=== PATIENT | male | born 1960 | race Caucasian/White ===

== ENCOUNTER 2018-04-16 08:15 | Day surgery (SDC) | payer OTHER, MEDICAID ==
[~2018-04-16] VITALS: Ht 193 cm; Wt 132.7 kg
[2018-04-16 08:38] LABS: HEMATOCRIT 38.6 % (42.0-54.0); HEMOGLOBIN 12.9 g/dL (13.5-17.5); MCH 29.3 pg (26.0-34.0); MCHC 33.4 g/dL (31.0-37.0); MCV 87.5 fL (80.0-100.0); MEAN PLATELET VOLUME 8.8 fL (7.4-10.4); RBC 4.41 10x6/uL (4.20-6.10); RDW 15.8 % (11.5-14.5); WBC 7.7 10x3/uL (4.8-10.8)
[2018-04-16 08:47] LABS: CALC OSMOLALITY 267 mosm/kg (275-300); CALCIUM 8.1 mg/dL (8.5-10.1); CARBON DIOXIDE 31.4 mmol/L (21.0-32.0); CHLORIDE - SERUM 97 mmol/L (98-107); CREATININE - SERUM 0.8 mg/dL (0.6-1.3); GLUCOSE 128 mg/dL (74-106); POTASSIUM - SERUM 4.1 mmol/L (3.5-5.1); SODIUM 134 mmol/L (136-145); UREA NITROGEN 7 mg/dL (7-18); eGFR NON AFRICAN AMERICAN > 90 mL/min (90-120)
[2018-04-16] MEDS ORDERED: NORCO 7.5/325 T1 TA1 PO (09:43)
[2018-04-16] MEDS ORDERED: NEURONTIN800 MG PO (09:45)
[2018-04-16] MEDS ORDERED: BUTALB-ACETAMIN-CAFF ×2 (09:45→09:46)
[2018-04-16] MEDS ORDERED: MOBIC7.5 MG PO (09:47)
[2018-04-16] MEDS ORDERED: NORVASC10 MG (09:47)
[2018-04-16] MEDS ORDERED: CYCLOBENZAPRINE10 MG PO (09:48)
[2018-04-16] MEDS ORDERED: PRINZIDE 20/12.1 TA1 PO (09:49)
[2018-04-16 10:04] VITALS: BP 103/63; Ht 193 cm; Wt 132.7 kg
[2018-04-16] MEDS ORDERED: OXYCODONE HCL5 M1 PO (13:05)
== END 2018-04-16 16:25 | disposition home or self-care (01) ==
LOC: D.OPS 08:15 → D.PAN 10:50 → D.OPS 12:30
PROVIDERS: Anesthesiology
DX: K43.9 Ventral hernia without obstruction or gangrene (principal); J44.9 Chronic obstructive pulmonary disease, unspecified; I73.9 Peripheral vascular disease, unspecified; E11.9 Type 2 diabetes mellitus without complications; F17.200 Nicotine dependence, unspecified, uncomplicated; Z01.812 Encounter for preprocedural laboratory examination

== ENCOUNTER → 2018-10-02 08:22 | Outpatient (CLI) | payer OTHER, MEDICAID ==
[2018-04-16 10:04] VITALS: BMI 35.6
[~2018-10-02 08:22] MED LIST: BUTALB-ACETAMIN-CAFF; CYCLOBENZAPRINE10 MG PO; MOBIC7.5 MG PO; NEURONTIN800 MG PO; NORCO 7.5/325 T1 TA1 PO; NORVASC10 MG; OXYCODONE HCL5 M1 PO; PRINZIDE 20/12.1 TA1 PO
== END | disposition home or self-care (01) ==
LOC: D.CT 08:22
PROVIDERS: ATTEND Surgery
DX: K43.9 Ventral hernia without obstruction or gangrene (principal)

== ENCOUNTER 2018-10-23 08:00 | Outpatient (CLI) | payer OTHER, MEDICAID ==
[~2018-10-23] VITALS: Ht 193 cm; Wt 131.1 kg
[~2018-10-23 08:00] MED LIST changes: -NORVASC10 MG; +NORVASC10 MG PO
[2018-10-23] MEDS ORDERED: VITAMIN B-1100 M1 PO (09:02)
[2018-10-23] MEDS ORDERED: FOLATE0.4 MG PO (09:02)
[2018-10-23 09:51] LABS: HEMATOCRIT 38.3 % (42.0-54.0); HEMOGLOBIN 12.9 g/dL (13.5-17.5); MCH 28.5 pg (26.0-34.0); MCHC 33.7 g/dL (31.0-37.0); MCV 84.5 fL (80.0-100.0); MEAN PLATELET VOLUME 9.3 fL (7.4-10.4); RBC 4.53 10x6/uL (4.20-6.10); WBC 12.1 10x3/uL (4.8-10.8)
[2018-10-23 10:14] LABS: CALC OSMOLALITY 257 mosm/kg (275-300); CALCIUM 8.8 mg/dL (8.5-10.1); CARBON DIOXIDE 29.7 mmol/L (21.0-32.0); CHLORIDE - SERUM 92 mmol/L (98-107); CREATININE - SERUM 0.8 mg/dL (0.6-1.3); GLUCOSE 120 mg/dL (74-106); POTASSIUM - SERUM 3.5 mmol/L (3.5-5.1); SODIUM 129 mmol/L (136-145); UREA NITROGEN 7 mg/dL (7-18); eGFR NON AFRICAN AMERICAN > 90 mL/min (90-120)
[2018-11-03 11:03] VITALS: Ht 193 cm; Wt 131.1 kg
== END 2018-10-23 08:01 | disposition home or self-care (01) ==
LOC: D.OPS 08:00 → D.PAN 10-24 09:30 → EDSTATUS 10-24 09:30
PROVIDERS: Anesthesiology; ATTEND Surgery
DX: Z53.9 Procedure and treatment not carried out, unspecified reason (principal)

== ENCOUNTER 2018-10-23 16:36 | Inpatient (IN) | payer OTHER, MEDICAID ==
[~2018-10-23] VITALS: Ht 193 cm; Wt 127.0 kg
--- NOTE | ~2018-10-23 | EC ---
PATIENT:KEILY REINA DATE OF SERVICE: 10/23/18 SEX: M MEDICAL RECORD: [id number] DATE OF : 62 LOCATION:D.MS [address] AGE OF PATIENT: 58 ADMISSION DATE: 10/23/18 REFERRING PHYSICIAN: INTERPRETING PHYSICIAN: BRISEIDA ASH MD ECHOCARDIOGRAM REPORT ECHO CHARGES 4 ECHO COMPLETE Date: 11/02/18 CLINICAL DIAGNOSIS: INCREASED O2 CONSUMPTION, SOB ECHOCARDIOGRAPHIC MEASUREMENTS (adult normal given) AC root (d.<3.7cm) 3.9 cm LV Septum d (<1.2 cm> 1.7 cm Valve Excursion 2.2 cm LV Septum (systole) 1.9 cm Left Atria (s.<4.0cm> 3.8 cm LVPW d(<1.2cm) 1.6 cm RV (d.<2.3cm) 3.5 cm LVPW (sytole) 1.9 cm LV diastole(<5.6CM) 5.9 cm MV E-F(>70mm/sec) cm LV systole 4.0 cm LVOT Diameter 2.1 cm MV exc.(>10mm) 1.8 cm Est.ejection fraction (50-75%) % DOPPLER: LVIT cm/sec A 77.0 cm/sec E 69.0 cm/sec LA cm/sec RVSP 17 mmHg LVOT 138 cm/sec AOP1/2T m/s Asc. Ao 150 cm/sec RVOT 98 cm/sec RA cm/sec PA 128 cm/sec AV Gradient Peak 9.00 mmHg AV Mean 5.70 mmHg AV Area 2.5 cm MV Gradient Peak 3.23 mmHg MV Mean 1.60 mmHg MV Area cm COMMENTS: Cold Storage Worker: 2 VINOD LINARES Sales Support Coordinator: 1 Dr. Ash TAPE# PACS Pericardial Effusion N DATE OF SERVICE: FINDINGS: 1. Left ventricular chamber size is within normal limits. Left ventricular systolic function is normal. Overall ejection fraction estimated at 60%. 2. Left atrium, right atrium, and right ventricular chamber sizes are within normal limits. Left atrium measures 3.8 cm. 3. Valvular structures have normal structure and motion. 4. Doppler interrogation reveals no significant valvular insufficiency or stenosis. Pulmonary systolic pressure is normal estimated at 17 mmHg. ECHOCARDIOGRAM REPORT [id number] KEILY REINA 5. No evidence of pericardial effusion or left ventricular thrombus. TRANSINT:[id number] Voice Confirmation ID: [id number] DOCUMENT ID: [id number] BRISEIDA ASH MD CC: [id number] DICTATION DATE: 11/02/181427 RECOIL SPRING WINDER: 11/03/18 0031 ADM IN [facility] [address] [id number]
[~2018-10-23 16:36] MED LIST changes: +FOLATE0.4 MG PO; +VITAMIN B-1100 M1 PO
--- NOTE | 2018-10-23 19:15 | NUR ---
ULTRASOUND AT BEDSIDE.
[2018-10-23 19:51] LABS: ERYTHROCYTE SEDIMENTATION RATE 68 mm/hr (0-20)
[2018-10-23 20:00] VITALS: BP 146/83
--- NOTE | 2018-10-23 20:00 | NUR ---
PT SITTING ON STRETCHER IN [employer], HIS RIGHT FOOT RED AND SWOLLEN, HE STATES , HIS AT BEDSIDE,
--- NOTE | 2018-10-23 20:45 | NUR ---
[facility] STOP TIME 2044, [facility] STOP TIME 2314,
[2018-10-23 21:00] VITALS: BP 141/85
--- NOTE | 2018-10-23 21:00 | NUR ---
MEDICATION INFUSING PER ORDER, CALL LIGHT WITHIN REACH. PATIENT TO BE ADMITTED, A REGULAR DIET ORDERED A SANDWICH TRAY GIVEN.
[2018-10-23 22:00] VITALS: BP 146/91
--- NOTE | 2018-10-23 22:00 | NUR ---
NO COMPLAINTS AT THIS TIME, VITAL SIGNS STABLE. RIGHT FOOT ELEVATYED ON BED, PT RESTING QUIETLY AT THIS TIME.
[2018-10-23 23:00] VITALS: BP 141/93
--- NOTE | 2018-10-23 23:00 | NUR ---
VITAL SIGNS STABLE, PILLOW GIVEN, PATIENT RESTING QUIETLY AT THIS TIME, VERBALIZES NEEDS.
[2018-10-24] VITALS: BP 165/94
--- NOTE | 2018-10-24 00:30 | NUR ---
BEDSIDE REPORT GIVEN TO HOMER LINO, PT STABLE.
[2018-10-24 01:56] VITALS: BP 129/65; BMI 34.1
[2018-10-24 06:06] VITALS: BP 137/88
[2018-10-24 07:00] LABS: BASOPHILS 0.3 % (0-2); EOSINOPHILS 2.3 % (0-7); HEMATOCRIT 34.6 % (42.0-54.0); HEMOGLOBIN 11.3 g/dL (13.5-17.5); IMMATURE GRANULOCYTES 0.6 % (0-5); LYMPHOCYTES 14.1 % (15-50); MCH 27.8 pg (26.0-34.0); MCHC 32.7 g/dL (31.0-37.0); MEAN PLATELET VOLUME 9.6 fL (7.4-10.4); MONOCYTES 11.5 % (2-11); NEUTROPHILS 71.2 % (40-80); PLATELET COUNT 284 10x3/uL (130-400); RBC 4.07 10x6/uL (4.20-6.10); RDW 17.3 % (11.5-14.5)
[2018-10-24 07:36] LABS: CALC OSMOLALITY 262 mosm/kg (275-300); CALCIUM 8.1 mg/dL (8.5-10.1); CARBON DIOXIDE 28.9 mmol/L (21.0-32.0); CHLORIDE - SERUM 95 mmol/L (98-107); CREATININE - SERUM 0.8 mg/dL (0.6-1.3); GLUCOSE 116 mg/dL (74-106); POTASSIUM - SERUM 3.6 mmol/L (3.5-5.1); SODIUM 131 mmol/L (136-145); eGFR NON AFRICAN AMERICAN > 90 mL/min (90-120)
[2018-10-24 07:38] LABS: UREA NITROGEN 9 mg/dL (7-18)
[2018-10-24 08:22] VITALS: BP 136/74
--- NOTE | 2018-10-24 08:25 | NUR ---
PT RESTING IN BED. VS TAKEN. O2 WAS 86% ON RA. APPLIED 2LNC AND PT O2 CAME UP TO 96%. PT STATES HE DOES NOT WEAR O2 AT HOME AND DOES NOT USE A BIPAP OR CPAP. EXPIRATORY WEEZING NOTED TO PT LEFT AND RIGHT LOWER LOBES. LUNG SOUNDS DIMINISHED IN PT LEFT AND RIGHT UPPER LOBES. BS ACTIVE X4. RIGHT LOWER LEG SWOLLEN AND RED WITH 3+ PITTING EDEMA. PT IS CURRENTLY BEING TREATED WITH VANCOMYCIN AND ZOSYN. PIV NOTED TO PT RIGHT AC. NO SIGNS OF INFILTRATION AT THIS TIME. DENIES ANY OTHER NEEDS AT THIS TIME, WILL CONT TO FOLLOW PLAN OF CARE
[2018-10-24 15:14] LABS: % SATURATION 11 % (15-55); IRON 33 ug/dl (35-150); TOTAL IRON BIND CAPACITY 289 ug/dl (260-445); UNSAT IRON BIND CAPACITY 256 ug/dl (150-375)
--- NOTE | 2018-10-24 17:48 | NUR ---
report called to hubert londono
[2018-10-24 22:22] VITALS: BP 140/78
[2018-10-24 22:52] LABS: APPEARANCE CLEAR (CLEAR); BILIRUBIN NEGATIVE (NEGATIVE); COLOR YELLOW (YELLOW); GLUCOSE NEGATIVE (NEGATIVE); KETONE NEGATIVE (NEGATIVE); NITRITE NEGATIVE (NEGATIVE); PROTEIN NEGATIVE (NEGATIVE); UROBILINOGEN NORMAL (NORMAL)
[2018-10-24 22:55] LABS: UDS - AMPHET NEGATIVE QUAL (NEGATIVE); UDS - BARB NEGATIVE QUAL (NEGATIVE); UDS - BENZO NEGATIVE QUAL (NEGATIVE); UDS - COCAINE NEGATIVE QUAL (NEGATIVE); UDS - OPIATE NEGATIVE QUAL (NEGATIVE); UDS - PCP NEGATIVE QUAL (NEGATIVE); UDS - THC NEGATIVE QUAL (NEGATIVE)
[2018-10-25 05:16] VITALS: BP 124/55
[2018-10-25 05:45] LABS: BASOPHILS 0.4 % (0-2); EOSINOPHILS 2.2 % (0-7); HEMATOCRIT 35.8 % (42.0-54.0); HEMOGLOBIN 11.5 g/dL (13.5-17.5); IMMATURE GRANULOCYTES 0.5 % (0-5); LYMPHOCYTES 11.8 % (15-50); MCH 27.4 pg (26.0-34.0); MCHC 32.1 g/dL (31.0-37.0); MCV 85.4 fL (80.0-100.0); MEAN PLATELET VOLUME 9.8 fL (7.4-10.4); MONOCYTES 12.5 % (2-11); NEUTROPHILS 72.6 % (40-80); PLATELET COUNT 337 10x3/uL (130-400); RBC 4.19 10x6/uL (4.20-6.10); RDW 17.4 % (11.5-14.5); WBC 10.4 10x3/uL (4.8-10.8)
[2018-10-25 05:57] LABS: ALBUMIN 2.5 g/dL (3.4-5.0); ALKALINE PHOSPHATASE 82 U/L (46-116); ALT (SGPT) 25 U/L (10-68); CALC OSMOLALITY 268 mosm/kg (275-300); CALCIUM 8.7 mg/dL (8.5-10.1); CARBON DIOXIDE 29.5 mmol/L (21.0-32.0); CHLORIDE - SERUM 97 mmol/L (98-107); CHOL - HDL RATIO 7.8 ratio (2.3-4.9); CHOLESTEROL, TOTAL 133 mg/dL (0-200); CREATININE - SERUM 0.8 mg/dL (0.6-1.3); GLUCOSE 121 mg/dL (74-106); HDL CHOLESTEROL 17 mg/dL (32-96); LDL CHOLESTEROL 92 mg/dL (0-100); LDL-HDL RATIO 5.4 ratio (1.5-3.5); POTASSIUM - SERUM 3.5 mmol/L (3.5-5.1); PROTEIN - SERUM 7.8 g/dL (6.4-8.2); SODIUM 135 mmol/L (136-145); TRIGLYCERIDE 124 mg/dL (30-200); UREA NITROGEN 7 mg/dL (7-18); eGFR NON AFRICAN AMERICAN > 90 mL/min (90-120)
[2018-10-25 08:36] VITALS: BP 113/62
--- NOTE | 2018-10-25 08:50 | NUR ---
PT SITTING UP IN BED WATCHING TV. NO ACUTE DISTRESS NOTED AT THIS TIME. O2 @ 3.5L NC IN PLACE. REPORTS PAIN TO RIGHT LOWER EXT 6/10. SALINE LOC TO RIGHT AC PATENT WITHOUT REDNESS OR EDEMA. DENIES FURTHER NEEDS AT THIS TIME. CL WITHIN REACH. ENCOURAGED TO CALL WITH NEEDS. CONTINUE POC
[2018-10-25 11:21] LABS: FOLATE (FOLIC ACID) - SERUM 10.7 ng/mL (>3.0)
[2018-10-25 12:07] VITALS: BP 101/58
[2018-10-25 16:45] VITALS: BP 108/68
[2018-10-25 20:34] VITALS: BP 121/76
[2018-10-26 05:15] VITALS: BP 124/63
[2018-10-26 06:39] LABS: CALC OSMOLALITY 266 mosm/kg (275-300); CALCIUM 7.8 mg/dL (8.5-10.1); CARBON DIOXIDE 27.1 mmol/L (21.0-32.0); CHLORIDE - SERUM 95 mmol/L (98-107); CREATININE - SERUM 0.7 mg/dL (0.6-1.3); GLUCOSE 123 mg/dL (74-106); POTASSIUM - SERUM 3.5 mmol/L (3.5-5.1); SODIUM 133 mmol/L (136-145); eGFR NON AFRICAN AMERICAN > 90 mL/min (90-120)
[2018-10-26 06:45] LABS: UREA NITROGEN 12 mg/dL (7-18)
[2018-10-26 07:19] LABS: BASOPHILS 0.3 % (0-2); EOSINOPHILS 3.1 % (0-7); HEMATOCRIT 32.2 % (42.0-54.0); HEMOGLOBIN 10.5 g/dL (13.5-17.5); IMMATURE GRANULOCYTES 0.6 % (0-5); MCH 27.5 pg (26.0-34.0); MCHC 32.6 g/dL (31.0-37.0); MCV 84.3 fL (80.0-100.0); MEAN PLATELET VOLUME 9.7 fL (7.4-10.4); MONOCYTES 9.9 % (2-11); NEUTROPHILS 74.1 % (40-80); PLATELET COUNT 346 10x3/uL (130-400); RBC 3.82 10x6/uL (4.20-6.10); RDW 17.2 % (11.5-14.5); WBC 9.5 10x3/uL (4.8-10.8)
--- NOTE | 2018-10-26 07:40 | NUR ---
PT RESTING IN BED WITH EYES CLOSED. AWAKENS SPONTANEOUSLY. NO ACUTE DISTRESS NOTED. O2 @ 3.5L NC. REPORTS PAIN TO RIGHT LOWER EXTREMITY /10. PAIN MEDICATION ADMINISTERED PER ORDERS. SALINE LOC TO LEFT HAND PATENT, WITHOUT REDNESS OR EDEMA. PT DENIES FURTHER NEEDS AT THIS TIME. CL WITHIN REACH. ENCOURAGED TO CALL WITH NEEDS. CONTINUE POC
[2018-10-26 08:31] VITALS: BP 104/52
[2018-10-26] MEDS ORDERED: CYCLOBENZAPRINE10 MG PO (12:16)
[2018-10-26 13:02] VITALS: BP 122/78
--- NOTE | 2018-10-26 16:42 | MORECARE ---
CASE MANAGEMENT DISCHARGE SUMMARY PATIENT: KEILY NORMAN UNIT: [id number] ADM DATE: 10/23/18 AGE: 58 : 62 SEX: M ROOM/BED: D.2224 AUTHOR: SELENE,DOC PHYSICIAN: REFERRING PHYSICIAN: MAYELA CARVAJAL MD DATE OF SERVICE: 10/26/18 Discharge Plan Patient Name: KEILY NORMAN Facility: [facility]:[place] : 1960 Planned Disposition: Home Anticipated Discharge Date: Discharge Date: Expected LOS: Initial Reviewer: [email or web address] Initial Review Date: 10/26/2018 Generated: 10/26/18 5:41 pm Comments DCP- Discharge Planning Updated by [email or web address]: Tamy Hogan on 10/26/18 3:[address] Patient Name: KEIYL NORMAN Admission Status: ER Accout number: [id number] Admission Date: 10-23-2018 : 1960 Admission Diagnosis: Attending: MAYELA CARVAJAL Current LOS: 3 Anticipated DC Date: Planned Disposition: Home Primary Insurance: [employer] CM met with patient to complete initial dc planning assessment. CM educated patient on the CM role and verbal consent given by patient to complete assessment. Patient lives at home with his . At discharge he plans on returning and feels this is a safe discharge. CM discussed availability of home health, rehab services and medical equipment. Patient denied known discharge needs at this time. CM will continue to follow and will assist as needed with dc plans/needs. Discharge Planning Comments: Acoustic Sensor Operator: Tamy Hogan DCPIA - Discharge Planning Initial Assessment Updated by [email or web address]: Tamy Hogan on 10/26/18 4:37 pm * Is the patient Alert and Oriented? Yes * How many steps to enter\exit or inside your home? Ramp/0 * PCP Abigail Clark * Pharmacy [facility] * Preadmission Environment Home with Family * ADLs Independent * Equipment None * List name and contact numbers for known caregivers / representatives who currently or will assist patient after discharge: Debora Norman - spouse - [phone] * Verbal permission to speak to the caregivers and representatives has been obtained from the patient. Yes * Community resources currently utilized None * Additional services required to return to the preadmission environment? No * Can the patient safely return to the preadmission environment? Yes * Has this patient been hospitalized within the prior 30 days at any hospital? No Patient Name: KEILY NORMAN Page [phone] at 1642 All edits/amendments must be made on the electronic document DICTATION DATE: 10/26/181640 CHYRON OPERATOR: ANGEL 10/26/181640 RPT#: [id number] DC DATE: STATUS: ADM IN [facility] [address] [place] [address] END OF REPORT
[2018-10-26 16:44] VITALS: BP 136/75
--- NOTE | 2018-10-26 19:43 | NUR ---
RECEIVED REPORT, ASSUMED CARE, CALL LIGHT IN REACH, BED LOWEST POSITION, DENIES NEEDS, SITTING UP IN BED PLAYING CARDS, WILL CONTINUE TO MONITOR
[2018-10-26 20:01] VITALS: BP 128/78
--- NOTE | 2018-10-27 04:43 | NUR ---
I have reviewed this patient and I concur with the Shift Assessment completed by the Licensed Practical Nurse today this shift.
[2018-10-27 04:57] VITALS: BP 126/82
[2018-10-27 05:41] LABS: BASOPHILS 0.3 % (0-2); HEMATOCRIT 33.2 % (42.0-54.0); HEMOGLOBIN 10.7 g/dL (13.5-17.5); IMMATURE GRANULOCYTES 0.7 % (0-5); LYMPHOCYTES 10.9 % (15-50); MCH 27.9 pg (26.0-34.0); MCHC 32.2 g/dL (31.0-37.0); MCV 86.7 fL (80.0-100.0); MEAN PLATELET VOLUME 9.4 fL (7.4-10.4); MONOCYTES 7.5 % (2-11); NEUTROPHILS 76.6 % (40-80); PLATELET COUNT 402 10x3/uL (130-400); RBC 3.83 10x6/uL (4.20-6.10); RDW 17.3 % (11.5-14.5); WBC 9.2 10x3/uL (4.8-10.8)
[2018-10-27 05:54] LABS: CALC OSMOLALITY 267 mosm/kg (275-300); CALCIUM 8.3 mg/dL (8.5-10.1); CARBON DIOXIDE 30.5 mmol/L (21.0-32.0); CHLORIDE - SERUM 96 mmol/L (98-107); CREATININE - SERUM 0.8 mg/dL (0.6-1.3); GLUCOSE 142 mg/dL (74-106); POTASSIUM - SERUM 3.6 mmol/L (3.5-5.1); SODIUM 134 mmol/L (136-145); eGFR NON AFRICAN AMERICAN > 90 mL/min (90-120)
[2018-10-27 05:59] LABS: UREA NITROGEN 7 mg/dL (7-18)
--- NOTE | 2018-10-27 08:00 | NUR ---
ASSESSMENT PER FLOW SHEET. PT IS WITHOUT DISTRESS. CALL LIGHT IN REACH
[2018-10-27 08:43] VITALS: BP 116/72
[2018-10-27 13:50] VITALS: BP 127/76
[2018-10-27 17:55] VITALS: BP 128/75
--- NOTE | 2018-10-27 19:29 | NUR ---
REMAINS WITHOUT CHANGE,WITHOUT DISTRESS. CONT PLAN OF CARE
--- NOTE | 2018-10-27 19:30 | NUR ---
RECEIVED REPORT, ASSUMED CARE, DENIES NEEDS, NO S/S OF DISTRESS NOTED, CALL LIGHT IN REACH, BED LOWEST POSITION, WILL CONTINUE POC
[2018-10-27 19:35] VITALS: BP 120/70
[2018-10-28] VITALS (12 sets, daily range): BP systolic 94–140; BP diastolic 55–86
--- NOTE | 2018-10-28 03:15 | NUR ---
I have reviewed this patient and I concur with the Shift Assessment completed by the Licensed Practical Nurse today this shift.
[2018-10-28 06:35] LABS: BASOPHILS 0.5 % (0-2); EOSINOPHILS 3.8 % (0-7); HEMATOCRIT 31.8 % (42.0-54.0); HEMOGLOBIN 10.3 g/dL (13.5-17.5); IMMATURE GRANULOCYTES 0.5 % (0-5); LYMPHOCYTES 11.3 % (15-50); MCH 27.6 pg (26.0-34.0); MCHC 32.4 g/dL (31.0-37.0); MCV 85.3 fL (80.0-100.0); MEAN PLATELET VOLUME 9.3 fL (7.4-10.4); MONOCYTES 7.5 % (2-11); NEUTROPHILS 76.4 % (40-80); PLATELET COUNT 376 10x3/uL (130-400); RBC 3.73 10x6/uL (4.20-6.10); RDW 16.9 % (11.5-14.5); WBC 8.7 10x3/uL (4.8-10.8)
[2018-10-28 06:43] LABS: CALC OSMOLALITY 263 mosm/kg (275-300); CALCIUM 8.3 mg/dL (8.5-10.1); CARBON DIOXIDE 30.5 mmol/L (21.0-32.0); CHLORIDE - SERUM 96 mmol/L (98-107); CREATININE - SERUM 0.8 mg/dL (0.6-1.3); GLUCOSE 125 mg/dL (74-106); POTASSIUM - SERUM 3.5 mmol/L (3.5-5.1); SODIUM 132 mmol/L (136-145); UREA NITROGEN 8 mg/dL (7-18); eGFR NON AFRICAN AMERICAN > 90 mL/min (90-120)
--- NOTE | 2018-10-28 08:13 | NUR ---
PT ALERT X 4. BREATH SOUNDS CLEAR BILAT, 3L O2 PER NC. BOWEL SOUNDS HYPOACTIVE TO RIGHT SIDE. IV TO LEFT FOREARM, SALINE LOCKED. REDDNESS AND SWELLING TO RIGHT ANKLE REGION. PT REPORTING PAIN OF 6/10, WILL MONITOR. SITTING UP IN BED. BED LOW, CALL LIGHT IN REACH, NO OTHER NEEDS AT THIS TIME
--- NOTE | 2018-10-28 19:30 | NUR ---
RECEIVED REPORT, ASSUMED CARE, SLEEPING, AROUSED EASILY TO VOICE, DENIES PAIN, WOUND VAC AND HEMOVAC IN PLACE, CALL LIGHT IN REACH, BED LOWEST POSITION, WILL CONTINUE TO MONITOR
[2018-10-29] VITALS: BP 124/82
[2018-10-29 04:00] VITALS: BP 137/79
--- NOTE | 2018-10-29 04:00 | NUR ---
I have reviewed this patient and I concur with the Shift Assessment completed by the Licensed Practical Nurse today this shift.
[2018-10-29 06:33] LABS: CALC OSMOLALITY 272 mosm/kg (275-300); CALCIUM 7.8 mg/dL (8.5-10.1); CARBON DIOXIDE 34.3 mmol/L (21.0-32.0); CHLORIDE - SERUM 99 mmol/L (98-107); CREATININE - SERUM 0.8 mg/dL (0.6-1.3); GLUCOSE 115 mg/dL (74-106); SODIUM 137 mmol/L (136-145); UREA NITROGEN 6 mg/dL (7-18); eGFR NON AFRICAN AMERICAN > 90 mL/min (90-120)
[2018-10-29 06:36] LABS: POTASSIUM - SERUM 4.2 mmol/L (3.5-5.1)
--- NOTE | 2018-10-29 07:30 | NUR ---
PT RESTING IN BED WITH EYES CLOSED. OPENS EYES SPONTANEOUSLY UPON NAME BEING CALLED. RESP EVEN AND UNLABORED. O2 @ 13L HIFLO. SALINE LOC TO LEFT AC PATENT, WITHOUT REDNESS OR EDEMA. DENIES PAIN AT THIS TIME. DRESSING C/D/I TO RIGHT LOWER EXTREMITY WITH WOUND VAC INTACT. DENIES FURTHER NEEDS AT THIS TIME. CL WITHIN REACH. ENCOURAGED TO CALL WITH NEEDS. CONTINUE POC
[2018-10-29 07:42] LABS: BASOPHILS 0.3 % (0-2); EOSINOPHILS 2.8 % (0-7); HEMATOCRIT 33.9 % (42.0-54.0); HEMOGLOBIN 10.5 g/dL (13.5-17.5); IMMATURE GRANULOCYTES 0.5 % (0-5); LYMPHOCYTES 14.2 % (15-50); MCH 27.7 pg (26.0-34.0); MEAN PLATELET VOLUME 9.3 fL (7.4-10.4); MONOCYTES 7.6 % (2-11); NEUTROPHILS 74.6 % (40-80); PLATELET COUNT 420 10x3/uL (130-400); RBC 3.79 10x6/uL (4.20-6.10); RDW 17.6 % (11.5-14.5); WBC 9.8 10x3/uL (4.8-10.8)
[2018-10-29 07:43] LABS: MCV 89.4 fL (80.0-100.0)
[2018-10-29 08:46] VITALS: BP 152/87
[2018-10-29 13:17] VITALS: BP 131/76
[2018-10-29 16:47] VITALS: BP 111/69
[2018-10-29 20:00] VITALS: BP 108/52
--- NOTE | 2018-10-29 20:00 | NUR ---
ASSESSMENT PER FLOWSHEET. SALINE LOCK PATENT TO RT HAND. TEDS/SCD'S ON. DRESG TO RT FOOT C/D/I. HEMAVAC IN PLACE AND COMPRESSED. WOUND VAC IN PLACE RT ANKLE. PATIENT HAD PULLED IT OUT AND IT WAS REDRESSED.
--- NOTE | 2018-10-29 21:00 | NUR ---
PT PULLS OUT IV. MEDS GIVEN PER MAR. NUZD=649. INSULIN GIVEN PER S/S.SEE MAR.
--- NOTE | 2018-10-29 21:35 | NUR ---
C/O PAIN IN RT FOOT. NORCO 7.5MG PO GIVEN FOR PAIN CONTROL.
--- NOTE | 2018-10-29 22:00 | NUR ---
RESITED IV TO LEFT WRIST #22G X1 ATTEMPT.
--- NOTE | 2018-10-30 | NUR ---
MEDS GIVEN PER MAR.
--- NOTE | 2018-10-30 | NUR ---
RESTING QUIETLY RESPIRATIONS WITH EASE AND UNLABORED.
--- NOTE | 2018-10-30 02:00 | NUR ---
VOIDS IN URINAL.
[2018-10-30 04:00] VITALS: BP 114/56
[2018-10-30 05:37] LABS: BASOPHILS 0.4 % (0-2); EOSINOPHILS 3.7 % (0-7); HEMATOCRIT 33.9 % (42.0-54.0); HEMOGLOBIN 10.6 g/dL (13.5-17.5); IMMATURE GRANULOCYTES 0.5 % (0-5); LYMPHOCYTES 15.3 % (15-50); MCHC 31.3 g/dL (31.0-37.0); MCV 89.7 fL (80.0-100.0); MEAN PLATELET VOLUME 9.5 fL (7.4-10.4); MONOCYTES 6.5 % (2-11); NEUTROPHILS 73.6 % (40-80); PLATELET COUNT 398 10x3/uL (130-400); RBC 3.78 10x6/uL (4.20-6.10); RDW 17.4 % (11.5-14.5); WBC 8.5 10x3/uL (4.8-10.8)
[2018-10-30 05:49] LABS: CALC OSMOLALITY 273 mosm/kg (275-300); CALCIUM 8.1 mg/dL (8.5-10.1); CARBON DIOXIDE 36.5 mmol/L (21.0-32.0); CHLORIDE - SERUM 96 mmol/L (98-107); GLUCOSE 127 mg/dL (74-106); SODIUM 137 mmol/L (136-145); UREA NITROGEN 7 mg/dL (7-18); eGFR NON AFRICAN AMERICAN 82 mL/min (90-120)
[2018-10-30 05:50] LABS: POTASSIUM - SERUM 3.3 mmol/L (3.5-5.1)
--- NOTE | 2018-10-30 06:00 | NUR ---
IVUG=665. NO COVERAGE.
--- NOTE | 2018-10-30 07:11 | NUR ---
PT IS 90% ON HFNC @ 12LPM LETHARGIC WITH EXP WHEEZING AND DIMINISHED BS BILAT. NURSE NOTIFIED
[2018-10-30 09:34] VITALS: BP 115/72
--- NOTE | 2018-10-30 12:54 | NUR ---
UPON ENTERING ROOM. PT COMING FROM BATHROOM WITHOUT OXYGEN. RA SAT 86. PLACED ON OXYGEN AND SATS NOW 92. INSTRUCTED PT TO REMAIN ON OXYGEN AND TO CALL FOR HELP TO BATHROOM. STATES HE WILL. CALL LIGHT IN REACH
[2018-10-30 18:14] VITALS: BP 104/65
[2018-10-30 20:00] VITALS: BP 102/52
--- NOTE | 2018-10-31 01:00 | NUR ---
REC'D AT CHGE OF SHIFT IN BED EYES CLOSED RESP. DEEP AND EVEN.AROUSES TO DEEP VERBAL STIMULI THEN GOES BACK TO SLEEP.WILL CONTINUE TO MONITOR FOR ANY CHGES. NV STATUS AND FOLLOW CURRENT PLAN OF CARE.WD. VAC INTACT RIGHT ANKLE.
[2018-10-31 05:21] VITALS: BP 124/74
[2018-10-31 05:24] LABS: BASOPHILS 0.2 % (0-2); EOSINOPHILS 3.1 % (0-7); HEMATOCRIT 36.5 % (42.0-54.0); HEMOGLOBIN 11.2 g/dL (13.5-17.5); IMMATURE GRANULOCYTES 0.5 % (0-5); LYMPHOCYTES 11.5 % (15-50); MCHC 30.7 g/dL (31.0-37.0); MCV 91.3 fL (80.0-100.0); MEAN PLATELET VOLUME 9.7 fL (7.4-10.4); MONOCYTES 6.5 % (2-11); NEUTROPHILS 78.2 % (40-80); PLATELET COUNT 450 10x3/uL (130-400); RDW 17.5 % (11.5-14.5); WBC 8.3 10x3/uL (4.8-10.8)
[2018-10-31 05:59] LABS: ALBUMIN 2.3 g/dL (3.4-5.0); ALKALINE PHOSPHATASE 81 U/L (46-116); ALT (SGPT) 26 U/L (10-68); BILIRUBIN - TOTAL 0.29 mg/dL (0.2-1.3); CALC OSMOLALITY 274 mosm/kg (275-300); CALCIUM 8.6 mg/dL (8.5-10.1); CHLORIDE - SERUM 96 mmol/L (98-107); CREATININE - SERUM 0.8 mg/dL (0.6-1.3); GLUCOSE 121 mg/dL (74-106); POTASSIUM - SERUM 3.7 mmol/L (3.5-5.1); PROTEIN - SERUM 8.3 g/dL (6.4-8.2); SODIUM 138 mmol/L (136-145); UREA NITROGEN 7 mg/dL (7-18); eGFR NON AFRICAN AMERICAN > 90 mL/min (90-120)
[2018-10-31 06:49] LABS: CARBON DIOXIDE 40.1 mmol/L (21.0-32.0)
--- NOTE | 2018-10-31 08:00 | NUR ---
PATIENT IN CONTACT ISOLATION IN WOUND. HAS HEMOVAC FOR WOUND. PATIENT IS ALERT/ORIENT. CALL LIGHT WITHIN REACH. VOICES NO NEEDS AT THIS TIME. WILL CONTINUE WITH PLAN OF CARE
[2018-10-31 09:37] VITALS: BP 114/72
--- NOTE | 2018-10-31 10:05 | NUR ---
Jing DAVIS ANP INTO SEE PATIENT.
[2018-10-31 14:03] VITALS: BP 98/53
[2018-10-31 14:56] VITALS: BMI 34.0
[2018-10-31 17:07] VITALS: BP 115/52
[2018-10-31 20:00] VITALS: BP 118/74
--- NOTE | 2018-11-01 03:55 | NUR ---
REC'D. IN BED LYING ON STOMACH EYES CLOSED RESP. DEEP AND EVEN.AROUSES TO DEEP VERBAL STIMULATION.THEN GOES RIGHT BACK TO SLEEP.WOUND VAC INTACK TO RIGHT ANKLE 3+ EDEMA NOTED TO FOOT.FAINT PEDAL PULSE PRESENT.WIGGLES TOES ON COMMAND.UP ON PILLOW WITH WOUND VAC IN PLACE.WILL CONTINUE TO MONITOR FOR ANY CHGES. IN NEUROVASCULAR STATUS AND FOLLOW CURRENT PLAN OF CARE
[2018-11-01 04:00] VITALS: BP 115/63
[2018-11-01 04:59] LABS: BASOPHILS 0.2 % (0-2); EOSINOPHILS 3.6 % (0-7); HEMATOCRIT 34.9 % (42.0-54.0); HEMOGLOBIN 10.9 g/dL (13.5-17.5); IMMATURE GRANULOCYTES 0.3 % (0-5); LYMPHOCYTES 13.2 % (15-50); MCH 27.8 pg (26.0-34.0); MCHC 31.2 g/dL (31.0-37.0); MEAN PLATELET VOLUME 9.3 fL (7.4-10.4); NEUTROPHILS 75.7 % (40-80); PLATELET COUNT 449 10x3/uL (130-400); RBC 3.92 10x6/uL (4.20-6.10); RDW 17.6 % (11.5-14.5); WBC 10.1 10x3/uL (4.8-10.8)
[2018-11-01 05:38] LABS: ALBUMIN 2.3 g/dL (3.4-5.0); ALKALINE PHOSPHATASE 83 U/L (46-116); ALT (SGPT) 26 U/L (10-68); BILIRUBIN - TOTAL 0.25 mg/dL (0.2-1.3); CALC OSMOLALITY 275 mosm/kg (275-300); CARBON DIOXIDE 37.4 mmol/L (21.0-32.0); CHLORIDE - SERUM 96 mmol/L (98-107); CREATININE - SERUM 0.8 mg/dL (0.6-1.3); GLUCOSE 128 mg/dL (74-106); POTASSIUM - SERUM 3.6 mmol/L (3.5-5.1); PROTEIN - SERUM 8.2 g/dL (6.4-8.2); SODIUM 138 mmol/L (136-145); UREA NITROGEN 7 mg/dL (7-18); eGFR NON AFRICAN AMERICAN > 90 mL/min (90-120)
--- NOTE | 2018-11-01 07:29 | NUR ---
I have reviewed this patient and I concur with the Shift Assessment completed by the Licensed Practical Nurse today this shift.
--- NOTE | 2018-11-01 07:48 | NUR ---
PT LYING IN BED ON STOMACH, PER PM NURSE PT HAD PULLED OUT IV AGAIN, PT HAS IV ABX ORDERED, WILL TRY AND GAIN IV ACCESS. WOUND VAC ALARMING STATES DUE TO PRESSURE, REPOSITIONED TUBING AND ALARM SILENCES FOR A BIT, WILL CONSULT WC NURSE TO REVIEW, BED IN LOW POSITION, CL IN REACH CONTINUE WITH PLAN OF CARE
[2018-11-01 08:45] VITALS: BP 104/50
[2018-11-01 12:45] VITALS: BP 115/75
--- NOTE | 2018-11-01 13:05 | NUR ---
SITTING UP IN BED,WITHOUT DISTRESS.DOOR OPEN,CALL LIGHT IN REACH.
--- NOTE | 2018-11-01 14:15 | MORECARE ---
CASE MANAGEMENT DISCHARGE SUMMARY PATIENT: KEILY NORMAN UNIT: [id number] ADM DATE: 10/23/18 AGE: 58 : 62 SEX: M ROOM/BED: D.2224 AUTHOR: SELENE,DOC PHYSICIAN: REFERRING PHYSICIAN: MAYELA CARVAJAL MD DATE OF SERVICE: 11/01/18 Discharge Plan Patient Name: KEILY NORMAN Facility: [facility]:[place] : 1960 Planned Disposition: Home Anticipated Discharge Date: Discharge Date: Expected LOS: Initial Reviewer: [email or web address] Initial Review Date: 10/26/2018 Generated: 11/01/18 3:14 pm DCP- Discharge Planning Updated by [email or web address]: Tamy Hogan on 10/26/18 3:[address] Patient Name: KEILY NORMAN Admission Status: ER Accout number: [id number] Admission Date: 10-23-2018 : 1960 Admission Diagnosis: Attending: MAYELA CARVAJAL Current LOS: 3 Anticipated DC Date: Planned Disposition: Home Primary Insurance: [employer] CM met with patient to complete initial dc planning assessment. CM educated patient on the CM role and verbal consent given by patient to complete assessment. Patient lives at home with his . At discharge he plans on returning and feels this is a safe discharge. CM discussed availability of home health, rehab services and medical equipment. Patient denied known discharge needs at this time. CM will continue to follow and will assist as needed with dc plans/needs. Discharge Planning Comments: It Project Lead: Tamy Hogan DCPIA - Discharge Planning Initial Assessment Updated by [email or web address]: Tamy Hogan on 10/26/18 4:37 pm * Is the patient Alert and Oriented? Yes * How many steps to enter\exit or inside your home? Ramp/0 * PCP Abigail Clark * Pharmacy [facility] * Preadmission Environment Home with Family * ADLs Independent * Equipment None * List name and contact numbers for known caregivers / representatives who currently or will assist patient after discharge: Debora Norman - spouse - [phone] * Verbal permission to speak to the caregivers and representatives has been obtained from the patient. Yes * Community resources currently utilized None * Additional services required to return to the preadmission environment? No * Can the patient safely return to the preadmission environment? Yes * Has this patient been hospitalized within the prior 30 days at any hospital? No External Providers External Provider: [facility] [employer] [facility] Next Contact Date: Service Request Date: Service Type: Resolution: Reviewer: Comments: Last DP export: 10/26/18 3:42 p Patient Name: KEILY NORMAN Page 20886 at 1415 All edits/amendments must be made on the electronic document DICTATION DATE: 11/01/181413 DRAWER IN STITCH BONDING MACHINE: ANGEL 11/01/181413 RPT#: [id number] DC DATE: STATUS: ADM IN [facility] [address] [place] [address] END OF REPORT
--- NOTE | 2018-11-01 14:41 | MORECARE ---
CASE MANAGEMENT DISCHARGE SUMMARY PATIENT: KEILY NORMAN UNIT: [id number] ADM DATE: 10/23/18 AGE: 58 : 62 SEX: M ROOM/BED: D.2224 AUTHOR: SELENE,DOC PHYSICIAN: REFERRING PHYSICIAN: MAYELA CARVAJAL MD DATE OF SERVICE: 11/01/18 Discharge Plan Patient Name: KEILY NORMAN Facility: [facility]:[place] : 1960 Planned Disposition: Home Anticipated Discharge Date: Discharge Date: Expected LOS: Initial Reviewer: [email or web address] Initial Review Date: 10/26/2018 Generated: 11/01/18 3:40 pm Comments DCP- Discharge Planning Updated by [email or web address]: Tamy Hogan on 11/01/18 1:[address] CM met with patient to discuss MEHNAZ forms for DME, HHS and infusion company. He states he does not have a preference and would like me to speak with his . I called his 's number and left a message concerning preferences. CM will continue to follow and assist with discharge planning/needs. DCP- Discharge Planning Updated by [email or web address]: Tamy Hogan on 10/26/18 3:[address] Patient Name: KEILY NORMAN Admission Status: ER Accout number: [id number] Admission Date: 10-23-2018 : 1960 Admission Diagnosis: Attending: MAYELA CARVAJAL Current LOS: 3 Anticipated DC Date: Planned Disposition: Home Primary Insurance: [employer] O CM met with patient to complete initial dc planning assessment. CM educated patient on the CM role and verbal consent given by patient to complete assessment. Patient lives at home with his . At discharge he plans on returning and feels this is a safe discharge. CM discussed availability of home health, rehab services and medical equipment. Patient denied known discharge needs at this time. CM will continue to follow and will assist as needed with dc plans/needs. Discharge Planning Comments: Steam Engineer: Tamy Hogan DCPIA - Discharge Planning Initial Assessment Updated by [email or web address]: Tamy Hogan on 10/26/18 4:37 pm * Is the patient Alert and Oriented? Yes * How many steps to enter\exit or inside your home? Ramp/0 * PCP Abigail Clark * Pharmacy [facility] * Preadmission Environment Home with Family * ADLs Independent * Equipment None * List name and contact numbers for known caregivers / representatives who currently or will assist patient after discharge: Debora Norman - [facility] - [phone] * Verbal permission to speak to the caregivers and representatives has been obtained from the patient. Yes * Community resources currently utilized None * Additional services required to return to the preadmission environment? No * Can the patient safely return to the preadmission environment? Yes * Has this patient been hospitalized within the prior 30 days at any hospital? No Last DP export: 11/01/18 1:14 p Patient Name: KEILY NORMAN Page 25542 at 1441 All edits/amendments must be made on the electronic document DICTATION DATE: 11/01/181439 ASSOCIATE DRAFTER: ANGEL 11/01/181439 RPT#: [id number] DC DATE: STATUS: ADM IN [facility] [address] [place] [address] END OF REPORT
--- NOTE | 2018-11-01 15:24 | MORECARE ---
CASE MANAGEMENT DISCHARGE SUMMARY PATIENT: KEILY NORMAN UNIT: [id number] ADM DATE: 10/23/18 AGE: 58 : 62 SEX: M ROOM/BED: D.2224 AUTHOR: SELENE,DOC PHYSICIAN: REFERRING PHYSICIAN: MAYELA CARVAJAL MD DATE OF SERVICE: 11/01/18 Discharge Plan Patient Name: KEILY NORMAN Facility: [facility]:[place] : 1960 Planned Disposition: Home Anticipated Discharge Date: Discharge Date: Expected LOS: Initial Reviewer: [email or web address] Initial Review Date: 10/26/2018 Generated: 11/01/18 4:24 pm Comments DCP- Discharge Planning Updated by [email or web address]: Tamy Hogan on 11/01/18 1:[address] CM met with patient to discuss MEHNAZ forms for DME, HHS and infusion company. He states he does not have a preference and would like me to speak with his . I called his 's number and left a message concerning preferences. CM will continue to follow and assist with discharge planning/needs. DCP- Discharge Planning Updated by [email or web address]: Tamy Hogan on 10/26/18 3:[address] Patient Name: KEILY NORMAN Admission Status: ER Accout number: [id number] Admission Date: 10-23-2018 : 1960 Admission Diagnosis: Attending: MAYELA CARVAJAL Current LOS: 3 Anticipated DC Date: Planned Disposition: Home Primary Insurance: [employer] O CM met with patient to complete initial dc planning assessment. CM educated patient on the CM role and verbal consent given by patient to complete assessment. Patient lives at home with his . At discharge he plans on returning and feels this is a safe discharge. CM discussed availability of home health, rehab services and medical equipment. Patient denied known discharge needs at this time. CM will continue to follow and will assist as needed with dc plans/needs. Discharge Planning Comments: Fusing Line Inspector: Tamy Hogan DCPIA - Discharge Planning Initial Assessment Updated by [email or web address]: Tamy Hogan on 10/26/18 4:37 pm * Is the patient Alert and Oriented? Yes * How many steps to enter\exit or inside your home? Ramp/0 * PCP Abigail Clark * Pharmacy [facility] * Preadmission Environment Home with Family * ADLs Independent * Equipment None * List name and contact numbers for known caregivers / representatives who currently or will assist patient after discharge: Debora Norman - [facility] - [phone] * Verbal permission to speak to the caregivers and representatives has been obtained from the patient. Yes * Community resources currently utilized None * Additional services required to return to the preadmission environment? No * Can the patient safely return to the preadmission environment? Yes * Has this patient been hospitalized within the prior 30 days at any hospital? No External Providers External Provider: [facility] Next Contact Date: Service Request Date: Service Type: Resolution: Reviewer: Comments: Last DP export: 11/01/18 1:40 p Patient Name: KEILY NORMAN Page [phone] at 1524 All edits/amendments must be made on the electronic document DICTATION DATE: 11/01/181522 ANSWERING SERVICE TELEPHONE OPERATOR: ANGEL 11/01/181522 RPT#: [id number] DC DATE: STATUS: ADM IN [facility] [address] [place] [address] END OF REPORT
--- NOTE | 2018-11-01 15:34 | MORECARE ---
CASE MANAGEMENT DISCHARGE SUMMARY PATIENT: KEILY NORMAN UNIT: [id number] ADM DATE: 10/23/18 AGE: 58 : 62 SEX: M ROOM/BED: D.2224 AUTHOR: SELENE,DOC PHYSICIAN: REFERRING PHYSICIAN: MAYELA CARVAJAL MD DATE OF SERVICE: 11/01/18 Discharge Plan Patient Name: KEILY NORMAN Facility: [facility]:[place] : 1960 Planned Disposition: Home Anticipated Discharge Date: Discharge Date: Expected LOS: Initial Reviewer: [email or web address] Initial Review Date: 10/26/2018 Generated: 11/01/18 4:34 pm Comments DCP- Discharge Planning Updated by [email or web address]: Tamy Hogan on 11/01/18 1:[address] CM met with patient to discuss MEH[employer]Z forms for DME, HHS and infusion company. He states he does not have a preference and would like me to speak with his . I called his 's number and left a message concerning preferences. CM will continue to follow and assist with discharge planning/needs. DCP- Discharge Planning Updated by [email or web address]: Tamy Hogan on 10/26/18 3:[address] Patient Name: KEILY NORMAN Admission Status: ER Accout number: [id number] Admission Date: 10-23-2018 : 1960 Admission Diagnosis: Attending: MAYELA CARVAJAL Current LOS: 3 Anticipated DC Date: Planned Disposition: Home Primary Insurance: [employer] O CM met with patient to complete initial dc planning assessment. CM educated patient on the CM role and verbal consent given by patient to complete assessment. Patient lives at home with his . At discharge he plans on returning and feels this is a safe discharge. CM discussed availability of home health, rehab services and medical equipment. Patient denied known discharge needs at this time. CM will continue to follow and will assist as needed with dc plans/needs. Discharge Planning Comments: Program Director: Tamy Hogan DCPIA - Discharge Planning Initial Assessment Updated by [email or web address]: Tamy Hogan on 10/26/18 4:37 pm * Is the patient Alert and Oriented? Yes * How many steps to enter\exit or inside your home? Ramp/0 * PCP Abigail Clark * Pharmacy [facility] * Preadmission Environment Home with Family * ADLs Independent * Equipment None * List name and contact numbers for known caregivers / representatives who currently or will assist patient after discharge: Debora Norman - [facility] - [phone] * Verbal permission to speak to the caregivers and representatives has been obtained from the patient. Yes * Community resources currently utilized None * Additional services required to return to the preadmission environment? No * Can the patient safely return to the preadmission environment? Yes * Has this patient been hospitalized within the prior 30 days at any hospital? No External Providers External Provider: [facility] Next Contact Date: Service Request Date: Service Type: Resolution: Reviewer: Comments: Last DP export: 11/01/18 2:24 p Patient Name: KEILY NORMAN Page [phone] at 1534 All edits/amendments must be made on the electronic document DICTATION DATE: 11/01/181532 CRADLE PLACER: ANGEL 11/01/181532 RPT#: [id number] DC DATE: STATUS: ADM IN [facility] [address] [place] [address] END OF REPORT
--- NOTE | 2018-11-01 16:29 | NUR ---
RECEIVED CALL FROM CAIO IN CT STTING PT IS TO BE NPO UNTIL CT COMPLETED, SPOKE TO PT AND SPOUSE IN REGARDS TO NPO STATUS UNTIL THEN, VERBALIZED UNDERSTANDING
[2018-11-01 17:06] VITALS: BP 153/99
--- NOTE | 2018-11-01 19:00 | NUR ---
REPORT RECEIVED AND CARE OF PT ASSUMED. PT LYING IN HIGH RASHID'S POSITION WITH EYES CLOSED. LEFT MIDLINE SALINE LOCKED. O2 IN USE VOA HI FLOW NC AT 7L. WILL MONITOR FOR NEEDS.
[2018-11-01 20:00] VITALS: BP 97/48
--- NOTE | 2018-11-01 20:42 | NUR ---
HS MEDICATIONS GIVEN TO INCLUDE ZOFRAN IVP AND MILK AND CRACKERS FOR INDIGESTION. WILL MONITOR FOR EFFECTIVENESS.
--- NOTE | 2018-11-01 22:30 | NUR ---
PT SLEEPING IN HIGH RASHID'S POSITION WITH EYES CLOSED AND EASY RESPIRATIONS.
[2018-11-02] VITALS: BP 104/62
--- NOTE | 2018-11-02 01:06 | NUR ---
WOUND VAC WITH "BLOCKAGE ALARMS" CHECKED ALL CLAMPS; RE-ENFORCED CLEAR OCCLUSIVE DRESSING; AND ENSURED WOUND VAC CANNISTER IN PROPER POSITION.
[2018-11-02 04:00] VITALS: BP 93/49
[2018-11-02 06:32] LABS: BASOPHILS 0.2 % (0-2); EOSINOPHILS 4.5 % (0-7); HEMATOCRIT 33.5 % (42.0-54.0); HEMOGLOBIN 10.5 g/dL (13.5-17.5); IMMATURE GRANULOCYTES 0.6 % (0-5); LYMPHOCYTES 11.8 % (15-50); MCH 28.1 pg (26.0-34.0); MCHC 31.3 g/dL (31.0-37.0); MCV 89.6 fL (80.0-100.0); MEAN PLATELET VOLUME 9.7 fL (7.4-10.4); MONOCYTES 7.6 % (2-11); NEUTROPHILS 75.3 % (40-80); PLATELET COUNT 439 10x3/uL (130-400); RBC 3.74 10x6/uL (4.20-6.10); RDW 18.1 % (11.5-14.5); WBC 8.7 10x3/uL (4.8-10.8)
[2018-11-02 06:42] LABS: ALBUMIN 2.3 g/dL (3.4-5.0); BILIRUBIN - TOTAL 0.34 mg/dL (0.2-1.3); C-REACTIVE PROTEIN 3.6 mg/dL (0.0-0.9); CALCIUM 9.1 mg/dL (8.5-10.1); CARBON DIOXIDE 39.5 mmol/L (21.0-32.0); POTASSIUM - SERUM 3.5 mmol/L (3.5-5.1); PROTEIN - SERUM 7.9 g/dL (6.4-8.2)
[2018-11-02 06:46] LABS: CREATININE - SERUM 1.1 mg/dL (0.6-1.3)
[2018-11-02 08:18] LABS: ERYTHROCYTE SEDIMENTATION RATE 90 mm/hr (0-20)
[2018-11-02 08:44] VITALS: BP 100/65
--- NOTE | 2018-11-02 09:30 | NUR ---
WOUND VAC HAS BEEN SOUNDING ALARM OFF. CANISTER CHANGED AND DRESSING REINFORCED. WOUND VAC OPERATING PROPERLY NOW. DOOR OPEN
--- NOTE | 2018-11-02 10:04 | MORECARE ---
CASE MANAGEMENT DISCHARGE SUMMARY PATIENT: KEILY NORMAN UNIT: [id number] ADM DATE: 10/23/18 AGE: 58 : 62 SEX: M ROOM/BED: D.2224 AUTHOR: SELENEDOC PHYSICIAN: REFERRING PHYSICIAN: MAYELA CARVAJAL MD DATE OF SERVICE: 11/02/18 Discharge Plan Patient Name: KEILY NORMAN Facility: [facility]:[place] : 1960 Planned Disposition: Home Anticipated Discharge Date: Discharge Date: Expected LOS: Initial Reviewer: [id number] Initial Review Date: 10/26/2018 Generated: 11/02/18 11:04 am Comments DCP- Discharge Planning Updated by [email or web address]: Tamy Hogan on 11/02/18 8:[address] Spoke with patient's today on the phone concerning what HHS, DME company and infusion company she would like to use. She states she is at work at this time and will meet with me at 3:00 today. I faxed signed Rx to [facility] for wound vac. CM will continue to follow and assist with discharge planning/needs. DCP- Discharge Planning Updated by [id number]: Tamy Hogan on 11/01/18 1:[address] CM met with patient to discuss MEHNAZ forms for DME, HHS and infusion company. He states he does not have a preference and would like me to speak with his . I called his 's number and left a message concerning preferences. CM will continue to follow and assist with discharge planning/needs. DCP- Discharge Planning Updated by [id number]: Tamy Hogan on 10/26/18 3:[address] Patient Name: KEILY NORMAN Admission Status: ER Accout number: [id number] Admission Date: 10-23-2018 : 1960 Admission Diagnosis: Attending: MAYELA CARVAJAL Current LOS: 3 Anticipated DC Date: Planned Disposition: Home Primary Insurance: [employer]IG[employer] PPO CM met with patient to complete initial dc planning assessment. CM educated patient on the CM role and verbal consent given by patient to complete assessment. Patient lives at home with his . At discharge he plans on returning and feels this is a safe discharge. CM discussed availability of home health, rehab services and medical equipment. Patient denied known discharge needs at this time. CM will continue to follow and will assist as needed with dc plans/needs. Discharge Planning Comments: Construction Manager: Tamy Hogan DCPIA - Discharge Planning Initial Assessment Updated by [email or web address]: Tamy Hogan on 10/26/18 4:37 pm * Is the patient Alert and Oriented? Yes * How many steps to enter\exit or inside your home? Ramp/0 * PCP Abigail Clark * Pharmacy [facility] * Preadmission Environment Home with Family * ADLs Independent * Equipment None * List name and contact numbers for known caregivers / representatives who currently or will assist patient after discharge: Debora Norman - [facility] - [phone] * Verbal permission to speak to the caregivers and representatives has been obtained from the patient. Yes * Community resources currently utilized None * Additional services required to return to the preadmission environment? No * Can the patient safely return to the preadmission environment? Yes * Has this patient been hospitalized within the prior 30 days at any hospital? No Last DP export: 11/01/18 2:34 p Patient Name: KEILY NORMAN Page [phone] at 1004 All edits/amendments must be made on the electronic document DICTATION DATE: 11/02/18 100 SEARCH MANAGER: ANGEL 11/02/18 1004 RPT#: [id number] DC DATE: STATUS: ADM IN [facility] [address] [place] [address] END OF REPORT
[2018-11-02 12:48] VITALS: BP 101/64
--- NOTE | 2018-11-02 14:22 | MORECARE ---
CASE MANAGEMENT DISCHARGE SUMMARY PATIENT: KEILY NORMAN UNIT: [id number] ADM DATE: 10/23/18 AGE: 58 : 62 SEX: M ROOM/BED: D.2224 AUTHOR: SELENEDOC PHYSICIAN: REFERRING PHYSICIAN: MAYELA CARVAJAL MD DATE OF SERVICE: 11/02/18 Discharge Plan Patient Name: KEILY NORMAN Facility: [facility]:[place] : 1960 Planned Disposition: Home Anticipated Discharge Date: Discharge Date: Expected LOS: Initial Reviewer: [email or web address] Initial Review Date: 10/26/2018 Generated: 11/02/18 3:22 pm Comments DCP- Discharge Planning Updated by [email or web address]: Tamy Hogan on 11/02/18 1:[address] Received a call from Deann with [facility]. Deann states that she is unable to know what the out of pocket cost is, but the patient is in network. She states Jessica will be covering for her on Monday. I spoke with Debora with [facility] and she states his plan will pay 100%. CM will present both to at 1500 today when she arrives. CM will continue to follow and assist with discharge planning/needs. DCP- Discharge Planning Updated by [email or web address]: Tamy Hogan on 11/02/18 8:[address] Spoke with patient's today on the phone concerning what HHS, DME company and infusion company she would like to use. She states she is at work at this time and will meet with me at 3:00 today. I faxed signed Rx to [facility] for wound vac. CM will continue to follow and assist with discharge planning/needs. DCP- Discharge Planning Updated by [email or web address]: Tamy Hogan on 11/01/18 1:[address] CM met with patient to discuss MEHNAZ forms for DME, HHS and infusion company. He states he does not have a preference and would like me to speak with his . I called his 's number and left a message concerning preferences. CM will continue to follow and assist with discharge planning/needs. DCP- Discharge Planning Updated by [email or web address]: Tamy Hogan on 10/26/18 3:[address] Patient Name: KEILY NORMAN Admission Status: ER Accout number: [id number] Admission Date: 10-23-2018 : 1960 Admission Diagnosis: Attending: MAYELA CARVAJAL Current LOS: 3 Anticipated DC Date: Planned Disposition: Home Primary Insurance: CIG[employer] PPO CM met with patient to complete initial dc planning assessment. CM educated patient on the CM role and verbal consent given by patient to complete assessment. Patient lives at home with his . At discharge he plans on returning and feels this is a safe discharge. CM discussed availability of home health, rehab services and medical equipment. Patient denied known discharge needs at this time. CM will continue to follow and will assist as needed with dc plans/needs. Discharge Planning Comments: Audio Production Manager: Tamy Hogan DCPIA - Discharge Planning Initial Assessment Updated by [email or web address]: Tamy Hogan on 10/26/18 4:37 pm * Is the patient Alert and Oriented? Yes * How many steps to enter\exit or inside your home? Ramp/0 * PCP Abigail Clark * Pharmacy [facility] * Preadmission Environment Home with Family * ADLs Independent * Equipment None * List name and contact numbers for known caregivers / representatives who currently or will assist patient after discharge: Debora Norman - [facility] - [phone] * Verbal permission to speak to the caregivers and representatives has been obtained from the patient. Yes * Community resources currently utilized None * Additional services required to return to the preadmission environment? No * Can the patient safely return to the preadmission environment? Yes * Has this patient been hospitalized within the prior 30 days at any hospital? No Last DP export: 11/02/18 9:04 a Patient Name: KEILY NORMAN Page [phone] at 1422 All edits/amendments must be made on the electronic document DICTATION DATE: 11/02/18 142 PHARMACIST HOSPITAL: ANGEL 11/02/18 142 RPT#: [id number] DC DATE: STATUS: ADM IN [facility] [address] [place] [address] END OF REPORT
--- NOTE | 2018-11-02 16:02 | MORECARE ---
CASE MANAGEMENT DISCHARGE SUMMARY PATIENT: KEILY NORMAN UNIT: [id number] ADM DATE: 10/23/18 AGE: 58 : 62 SEX: M ROOM/BED: D.2224 AUTHOR: SELENEDOC PHYSICIAN: REFERRING PHYSICIAN: MAYELA CARVAJAL MD DATE OF SERVICE: 11/02/18 Discharge Plan Patient Name: KEILY NORMAN Facility: [facility]:[place] : 1960 Planned Disposition: Home Anticipated Discharge Date: Discharge Date: Expected LOS: Initial Reviewer: [email or web address] Initial Review Date: 10/26/2018 Generated: 11/02/18 5:01 pm Comments DCP- Discharge Planning Updated by [email or web address]: Tamy Hogan on 11/02/18 3:[address] Met with patient and spouse to discuss discharge planning. I reviewed IV antibiotics and they would like to use [facility]. [facility] I notified Efren with [facility] and clinical faxed. I notified [facility] and they will check with me on Monday. I notified Jules with [facility] and will do a walk test on Monday for home oxygen. I do not have the approval back for his wound vac yet from insurance, will recheck on Monday. CM will continue to follow and assist with discharge planning/needs. DCP- Discharge Planning Updated by [email or web address]: Tamy Hogan on 11/02/18 1:[address] Received a call from Deann with [facility]. Deann states that she is unable to know what the out of pocket cost is, but the patient is in network. She states Jessica will be covering for her on Monday. I spoke with Debora with [facility] and she states his plan will pay 100%. CM will present both to at 1500 today when she arrives. CM will continue to follow and assist with discharge planning/needs. DCP- Discharge Planning Updated by [email or web address]: Tamy Hogan on 11/02/18 8:[address] Spoke with patient's today on the phone concerning what [facility], DME company and infusion company she would like to use. She states she is at work at this time and will meet with me at 3:00 today. I faxed signed Rx to [facility] for wound vac. CM will continue to follow and assist with discharge planning/needs. DCP- Discharge Planning Updated by [email or web address]: Tamy Hogan on 11/01/18 1:[address] CM met with patient to discuss MEHNAZ forms for DME, HHS and infusion company. He states he does not have a preference and would like me to speak with his . I called his 's number and left a message concerning preferences. CM will continue to follow and assist with discharge planning/needs. DCP- Discharge Planning Updated by [email or web address]: Tamy Hogan on 10/26/18 3:[address] Patient Name: KEILY NORMAN Admission Status: ER Accout number: [id number] Admission Date: 10-23-2018 : 1960 Admission Diagnosis: Attending: MAYELA CARVAJAL Current LOS: 3 Anticipated DC Date: Planned Disposition: Home Primary Insurance: [employer] CM met with patient to complete initial dc planning assessment. CM educated patient on the CM role and verbal consent given by patient to complete assessment. Patient lives at home with his . At discharge he plans on returning and feels this is a safe discharge. CM discussed availability of home health, rehab services and medical equipment. Patient denied known discharge needs at this time. CM will continue to follow and will assist as needed with dc plans/needs. Discharge Planning Comments: Ground Crewman Mission Support: Tamy Mendiolaalia DCPIA - Discharge Planning Initial Assessment Updated by [email or web address]: Tamy Mendiolaalia on 10/26/18 4:37 pm * Is the patient Alert and Oriented? Yes * How many steps to enter\exit or inside your home? Ramp/0 * PCP Abigail Clark * Pharmacy [facility] * Preadmission Environment Home with Family * ADLs Independent * Equipment None * List name and contact numbers for known caregivers / representatives who currently or will assist patient after discharge: Debora Norman - spouse - [phone] * Verbal permission to speak to the caregivers and representatives has been obtained from the patient. Yes * Community resources currently utilized None * Additional services required to return to the preadmission environment? No * Can the patient safely return to the preadmission environment? Yes * Has this patient been hospitalized within the prior 30 days at any hospital? No External Providers External Provider: [facility] Next Contact Date: Service Request Date: Service Type: Resolution: Reviewer: Comments: Coverage Notice Reviewer: [email or web address] Thad Tamy Mendiolaalia Notice Issued Date-Time: 11/02/2018 15:57 Notice Type: Patient Choice Letter Notice Delivered To: Family Member Relationship to Patient: Spouse Cloud Physicist Name: Delivery Method: HAND - Hand Delivered Latisha Days: Prior Verbal Notification: Recipient Understood Notice: Yes Recipient Signature: Yes Med Rec Note Co-signed by Attending: Coverage Notice Comment: MEHNAZ FOR DEBBIE ANDREW CARESusie, SHERWIN EDYD Last DP export: 11/02/18 1:22 p Patient Name: KEILY NORMAN Page [phone] at 1602 All edits/amendments must be made on the electronic document DICTATION DATE: 11/02/18 160 AMUSEMENT CENTRE MANAGER: ANGEL 11/02/18 160 RPT#: [id number] DC DATE: STATUS: ADM IN [facility] [address] [place] [address] END OF REPORT
[2018-11-02 16:17] VITALS: BP 98/57
--- NOTE | 2018-11-02 16:23 | NUR ---
PT RESTING IN BED. NO SIGNS OF DISTRESS. IV TO LEFT UPPER ARM MIDLINE PATENT NO REDNESS TO TENDERNESS. ON 7L HIGH FLOW NC. HAS WOUND VAC TO RIGHT ANKLE. 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 DENIES ANY OTHER NEED AT THIS TIME. CALL LIGHT IN REACH. BED LOW POSITION. FAMILY AT BEDSIDE.
[2018-11-02 18:07] LABS: AEROBE ID Final report (())
--- NOTE | 2018-11-02 23:04 | NUR ---
WOUND VAC CONTINUOUSLY SOUNDING OCCLUSION ALARM. REMOVED ALL OUTER DRESSING...LEAVING FOAM PLACED / SUTURED IN SURGERY. RE-COVERED WITH NEW OCCLUSIVE DRESSING AND REPLACED WOUND VAC APPARATUS. TURNED WOUND VAC BACK ON...NO MORE ALARMING. PT TOLERATED PROCEDURE WELL. WILL CONTINUE TO MONITOR FOR NEEDS.
[2018-11-03 06:12] LABS: BASOPHILS 0.2 % (0-2); EOSINOPHILS 4.8 % (0-7); HEMATOCRIT 36.8 % (42.0-54.0); HEMOGLOBIN 11.3 g/dL (13.5-17.5); IMMATURE GRANULOCYTES 0.4 % (0-5); LYMPHOCYTES 14.6 % (15-50); MCH 27.8 pg (26.0-34.0); MCHC 30.7 g/dL (31.0-37.0); MCV 90.4 fL (80.0-100.0); MEAN PLATELET VOLUME 9.5 fL (7.4-10.4); MONOCYTES 7.8 % (2-11); NEUTROPHILS 72.2 % (40-80); PLATELET COUNT 428 10x3/uL (130-400); RBC 4.07 10x6/uL (4.20-6.10); RDW 17.9 % (11.5-14.5); WBC 8.4 10x3/uL (4.8-10.8)
[2018-11-03 06:20] LABS: ALBUMIN 2.5 g/dL (3.4-5.0); ALKALINE PHOSPHATASE 82 U/L (46-116); BILIRUBIN - TOTAL 0.26 mg/dL (0.2-1.3); CALCIUM 8.9 mg/dL (8.5-10.1); CHLORIDE - SERUM 97 mmol/L (98-107); GLUCOSE 118 mg/dL (74-106); PROTEIN - SERUM 8.7 g/dL (6.4-8.2); SODIUM 139 mmol/L (136-145); eGFR NON AFRICAN AMERICAN 82 mL/min (90-120)
[2018-11-03 06:23] LABS: CALC OSMOLALITY 278 mosm/kg (275-300); POTASSIUM - SERUM 4.4 mmol/L (3.5-5.1); UREA NITROGEN 13 mg/dL (7-18)
[2018-11-03 06:25] LABS: ALT (SGPT) 41 U/L (10-68); CARBON DIOXIDE 40.7 mmol/L (21.0-32.0)
--- NOTE | 2018-11-03 07:45 | NUR ---
PATIENT IN BED WITH IV INTACT. NO COMPLAINTS OR SIGNS OF DISTRESS. EYES CLOSED AND RESTING QUIETLY. WOUND VAC INTACT. CALL LIGHT WITHIN REACH.
[2018-11-03 09:50] VITALS: BP 116/70
[2018-11-03 11:03] VITALS: Ht 193 cm; Wt 127.0 kg
[2018-11-03 14:41] VITALS: BP 112/77
[2018-11-03 17:12] VITALS: BP 128/79
--- NOTE | 2018-11-03 18:45 | NUR ---
PATIENT SITTING UP EATING IN BED WITH IV INTACT. NO COMPLAINTS OR SIGNS OF DISTRESS. CALL LIGHT WITHIN REACH.
--- NOTE | 2018-11-03 19:00 | NUR ---
BEDSIDE REPORT RECEIVED AND CARE OF PT ASSUMED. PT LYING IN HIGH RASHID'S POSITION WITH EYES CLOSED AND EASY RESPIRATIONS. STACY MIDLINE SALINE LOCKED. WILL MONITOR FOR NEEDS.
[2018-11-03 19:37] VITALS: BP 114/58
--- NOTE | 2018-11-03 20:21 | NUR ---
HS MEDICATIONS GIVEN. FSBS 190 THIS CHECK REQUIRING COVERAGE WITH 4 UNITS OF INSULIN PER SLIDING SCALE. WILL CONTINUE TO MONITOR FOR NEEDS.
--- NOTE | 2018-11-03 20:45 | NUR ---
HS SNACK OF OBDULIO CRACKERS AND MILK FOR HS SNACK.
[2018-11-04 00:56] VITALS: BP 120/80
--- NOTE | 2018-11-04 05:38 | NUR ---
I have reviewed this patient and I concur with the Shift Assessment completed by the Licensed Practical Nurse today this shift.
[2018-11-04 05:52] VITALS: BP 111/66
[2018-11-04 07:10] LABS: BASOPHILS 0.4 % (0-2); EOSINOPHILS 3.1 % (0-7); HEMOGLOBIN 11.2 g/dL (13.5-17.5); IMMATURE GRANULOCYTES 0.7 % (0-5); LYMPHOCYTES 17.6 % (15-50); MCHC 30.3 g/dL (31.0-37.0); MEAN PLATELET VOLUME 9.7 fL (7.4-10.4); MONOCYTES 9.1 % (2-11); NEUTROPHILS 69.1 % (40-80); PLATELET COUNT 434 10x3/uL (130-400); RDW 18.2 % (11.5-14.5); WBC 7.6 10x3/uL (4.8-10.8)
[2018-11-04 07:11] LABS: ALBUMIN 2.5 g/dL (3.4-5.0); ALKALINE PHOSPHATASE 85 U/L (46-116); ALT (SGPT) 47 U/L (10-68); CALC OSMOLALITY 278 mosm/kg (275-300); CALCIUM 9.3 mg/dL (8.5-10.1); CARBON DIOXIDE 38.3 mmol/L (21.0-32.0); CHLORIDE - SERUM 98 mmol/L (98-107); CREATININE - SERUM 0.9 mg/dL (0.6-1.3); GLUCOSE 103 mg/dL (74-106); POTASSIUM - SERUM 4.4 mmol/L (3.5-5.1); PROTEIN - SERUM 8.6 g/dL (6.4-8.2); SODIUM 139 mmol/L (136-145); UREA NITROGEN 15 mg/dL (7-18); eGFR NON AFRICAN AMERICAN > 90 mL/min (90-120)
[2018-11-04 07:12] LABS: MCV 92.5 fL (80.0-100.0)
[2018-11-04 08:45] VITALS: BP 129/81
--- NOTE | 2018-11-04 08:45 | NUR ---
PATIENT IN BED WITH NO COMPLAINTS OR SIGNS OF DISTRESS. IV INTACT. WOUND VAC INTACT. PATIENT SITTING UP ON SIDE OF BED PLAYING CARDS. CALL LIGHT WITHIN REACH.
[2018-11-04 12:00] VITALS: BP 145/85
[2018-11-04 16:30] VITALS: BP 134/76
--- NOTE | 2018-11-04 19:00 | NUR ---
REPORT RECEIVED AND CARE OF PT ASSUMED. PT LYING IN HIGH RASHID'S POSITION WATCHING TV. LEFT MIDLINE SALINE LOCKED. O2 IN USE VIA NC AT 5L. WOUND VAC IN PLACE ON RIGHT FOOT WITH NO LEAKANG OR OCCLUSION ALARMS. WILL MONITOR FOR NEEDS.
--- NOTE | 2018-11-04 19:32 | NUR ---
PATIENT IN BED WITH IV INTACT. NO COMPLAINTS OR SIGNS OF DISTRESS. WOUND VAC WNL. CALL LIGHT WITHIN REACH.
[2018-11-04 20:31] VITALS: BP 113/58
--- NOTE | 2018-11-04 21:12 | NUR ---
HS MEDICATIONS GIVEN TO INCLUDE NORCO PER REQUEST FOR PAIN IN RIGHT FOOT. FSBS 296 THIS CHECK REQUIRING COVERAGE WITH 10 UNITS OF INSULIN PER SLIDING SCALE. WILL CONTINUE TO MONITOR FOR NEEDS.
--- NOTE | 2018-11-04 21:15 | NUR ---
GAVE HS SNACK OF OBDULIO CRACKERS AND MILK. WILL CONTINUE TO MONITOR FOR NEEDS.
[2018-11-05 06:03] LABS: ALBUMIN 2.5 g/dL (3.4-5.0); ALKALINE PHOSPHATASE 82 U/L (46-116); ALT (SGPT) 54 U/L (10-68); CALC OSMOLALITY 273 mosm/kg (275-300); CALCIUM 9.2 mg/dL (8.5-10.1); CHLORIDE - SERUM 97 mmol/L (98-107); CREATININE - SERUM 0.9 mg/dL (0.6-1.3); GLUCOSE 113 mg/dL (74-106); POTASSIUM - SERUM 4.2 mmol/L (3.5-5.1); PROTEIN - SERUM 8.6 g/dL (6.4-8.2); SODIUM 136 mmol/L (136-145); UREA NITROGEN 15 mg/dL (7-18); eGFR NON AFRICAN AMERICAN > 90 mL/min (90-120)
[2018-11-05 06:07] LABS: CARBON DIOXIDE 42.6 mmol/L (21.0-32.0)
[2018-11-05 09:13] VITALS: BP 133/77
[2018-11-05 09:20] LABS: BASOPHILS 0.8 % (0-2); EOSINOPHILS 4.1 % (0-7); HEMATOCRIT 36.4 % (42.0-54.0); HEMOGLOBIN 11.3 g/dL (13.5-17.5); IMMATURE GRANULOCYTES 0.6 % (0-5); LYMPHOCYTES 23.9 % (15-50); MCH 28.3 pg (26.0-34.0); MEAN PLATELET VOLUME 9.8 fL (7.4-10.4); MONOCYTES 9.4 % (2-11); NEUTROPHILS 61.2 % (40-80); PLATELET COUNT 410 10x3/uL (130-400); RDW 17.9 % (11.5-14.5); WBC 6.6 10x3/uL (4.8-10.8)
--- NOTE | 2018-11-05 09:30 | NUR ---
WOUND VAC DRESSING REPLACED BY CRISTEL LINO. SEAL CHECKED WITH NO LEAKS. PATIENT TOLERATED WITH SMALL AMOUNT OF PAIN. IV INTACT. NO COMPLAINTS OR SIGNS OF DISTRESS. CALL LIGHT WITHINR EACH.
--- NOTE | 2018-11-05 13:00 | NUR ---
PATIENT UP IN WC WITH AT THIS TIME.
--- NOTE | 2018-11-05 13:44 | NUR ---
WALK TEST DONE FOR HOME O2 NEEDS, PT QUALIFIED WITH A O2 SATURATION OF 87%, PT PLACED ON 2L NASAL CANNULA AND O2 SATURATION CAME UP TO 95%
[2018-11-05 13:56] VITALS: BP 123/81
--- NOTE | 2018-11-05 16:45 | NUR ---
PATIENT SITTING UP IN BED WITH NO COMPLAINTS OR SIGNS OF DISTRESS. IV INTACT. CALL LIGHTW ITHIN REACH.
[2018-11-05 17:04] VITALS: BP 144/95
--- NOTE | 2018-11-05 19:12 | MORECARE ---
CASE MANAGEMENT DISCHARGE SUMMARY PATIENT: KEILY NORMAN UNIT: [id number] ADM DATE: 10/23/18 AGE: 58 : 62 SEX: M ROOM/BED: D.2224 AUTHOR: SELENE,DOC PHYSICIAN: REFERRING PHYSICIAN: MAYELA CARVAJAL MD DATE OF SERVICE: 11/05/18 Discharge Plan Patient Name: KEILY NORMAN Facility: [facility]:[place] : 1960 Planned Disposition: Home Anticipated Discharge Date: Discharge Date: Expected LOS: Initial Reviewer: [email or web address] Initial Review Date: 10/26/2018 Generated: 11/05/18 8:12 pm Comments DCP- Discharge Planning Updated by [email or web address]: Becky Mayer on 11/05/18 6:[address] CM RECEIVED A MESSAGE FROM [facility], DISTRICT TRAFFIC CHIEF, THAT [facility] HAD CALLED TO SAY THEY COULD NOT ASSUME CARE FOR THE PATIENT. THEY ARE NOT IN-NETWORK FOR HIS CIGNA PPO PLAN. CM REC TELEPHONE CALL FROM [facility].THEY WERE READY TO PROVIDE IVAB THERAPY. CM ADVISED BY SEKOU THAT [facility] HAD ACCEPTED THE REFERRAL [facility] COULD NOT CONFIRM UNTIL MONDAY. TC TO [facility]. [facility] IS READY TO PROVIDE SERVICE. AWAIT DISCHARGE ORDERS W/ IVAB ORDER. TC TO [facility]. THEY ARE NOT CONTRACTED W/ CIGNA. TC TO [facility]. THEY ARE NOT CONTRACTED W/ CIGNA. TC TO [facility]. THEY HAVE A CIGNA CONTRACT NOT CERTAIN THEY ARE IN-NETWORK FOR HIS PLAN. DID NOT FEEL IT WOULD BE SAFE TO PROVIDE CARE FOR A PATIENT AT THAT DISTANCE WITH HIS SPECIFIC NEEDS. DR PATEL COGNI[facility]ANT [facility] ISSUE. ADVISED INFUSION COMPANY CAN PROVIDE NURSING FOR INFUSION BUT CANNOT DO M/W/F WOUND VAC DRESSING CHANGES. TC TO [facility]. SPOKE W/ ITA. FAXED REFERRAL. ITA MADE NUMEROUS CALL AND HAD HER PROCESSING TALC AND BORATE SUPERVISOR ASSISTING. ITA CALLED CM TO ADVISE OF PROGRESS AND ISSUE. [facility] IS IN NETWORK, HOWEVER PATIENT HAS ONLY 5 TOTAL HH VISITS. HIS WOUND VAC HAS DRESSING CHANGES M/W/F. INSURANCE WILL PAY 70% PATIENT IS RESPONSIBLE FOR 30%. CM HAD ITA EXPLAIN TO THE PATIENT'S . STATES PATIENT HAS MEDICAID UNTIL 11/13/18 PER A LETTER THEY RECEIVED. TC TO [employer] TO VERIFY NUMBERS FOR [facility]. [place] IN MED DATA CHECKED AND PER THE MEDICAID SYSTEM IT IS STILL IN PENDING STATUS. [facility] STATED SOME CORRECTIONS ARE REQUIRED BEFORE APPROVAL. CM HAS UPDATED THE PATIENT AND HIS . DCP- Discharge Planning Updated by [id number]: Tamy Hogan on 11/02/18 3:[address] Met with patient and spouse to discuss discharge planning. I reviewed IV antibiotics and they would like to use [facility]. They would like [facility] for home health and [facility] for DME company. I notified Efren with [facility] and clinical faxed. I notified [facility] and they will check with me on Monday. I notified Jules with [facility] and will do a walk test on Monday for home oxygen. I do not have the approval back for his wound vac yet from insurance, will recheck on Monday. CM will continue to follow and assist with discharge planning/needs. DCP- Discharge Planning Updated by [id number]: Tamy Hogan on 11/02/18 1:[address] Received a call from Deann with [facility]. Deann states that she is unable to know what the out of pocket cost is, but the patient is in network. She states Jessica will be covering for her on Monday. I spoke with Debora with [facility] and she states his plan will pay 100%. CM will present both to at 1500 today when she arrives. CM will continue to follow and assist with discharge planning/needs. DCP- Discharge Planning Updated by [email or web address]: Tamy Hogan on 11/02/18 8:[address] Spoke with patient's today on the phone concerning what HHS, DME company and infusion company she would like to use. She states she is at work at this time and will meet with me at 3:00 today. I faxed signed Rx to [facility] for wound vac. CM will continue to follow and assist with discharge planning/needs. DCP- Discharge Planning Updated by [email or web address]: Tamy Hogan on 11/01/18 1:[address] CM met with patient to discuss MEHNAZ forms for DME, HHS and infusion company. He states he does not have a preference and would like me to speak with his . I called his 's number and left a message concerning preferences. CM will continue to follow and assist with discharge planning/needs. DCP- Discharge Planning Updated by [id number]: Tamy Hogan on 10/26/18 3:[address] Patient Name: KEILY NORMAN Admission Status: ER Accout number: [id number] Admission Date: 10-23-2018 : 1960 Admission Diagnosis: Attending: MAYELA CARVAJAL Current LOS: 3 Anticipated DC Date: Planned Disposition: Home Primary Insurance: [employer] CM met with patient to complete initial dc planning assessment. CM educated patient on the CM role and verbal consent given by patient to complete assessment. Patient lives at home with his . At discharge he plans on returning and feels this is a safe discharge. CM discussed availability of home health, rehab services and medical equipment. Patient denied known discharge needs at this time. CM will continue to follow and will assist as needed with dc plans/needs. Discharge Planning Comments: Milk Sampler: Tamy Hogan DCPIA - Discharge Planning Initial Assessment Updated by [email or web address]: Tamy Hogan on 10/26/18 4:37 pm * Is the patient Alert and Oriented? Yes * How many steps to enter\exit or inside your home? Ramp/0 * PCP Abigail Clark * Pharmacy [facility] * Preadmission Environment Home with Family * ADLs Independent * Equipment None * List name and contact numbers for known caregivers / representatives who currently or will assist patient after discharge: Debora Norman - spouse - [phone] * Verbal permission to speak to the caregivers and representatives has been obtained from the patient. Yes * Community resources currently utilized None * Additional services required to return to the preadmission environment? No * Can the patient safely return to the preadmission environment? Yes * Has this patient been hospitalized within the prior 30 days at any hospital? No Coverage Notice Reviewer: [id number] - Tamy Hogan Notice Issued Date-Time: 11/02/2018 15:57 Notice Type: Patient Choice Letter Notice Delivered To: Family Member Relationship to Patient: Spouse Pilot Teacher Name: Delivery Method: HAND - Hand Delivered Latisha Days: Prior Verbal Notification: Recipient Understood Notice: Yes Recipient Signature: Yes Med Rec Note Co-signed by Attending: Coverage Notice Comment: [facility] FOR [facility], [facility], [facility] Last DP export: 11/02/18 3:02 p Patient Name: KEILY NORMAN Page [id number] at 1912 All edits/amendments must be made on the electronic document DICTATION DATE: 11/05/181910 OUTREACH WORKER: AGNEL 11/05/181910 RPT#: [id number] DC DATE: STATUS: ADM IN [facility] [address] [place] [address] END OF REPORT
--- NOTE | 2018-11-05 19:18 | MORECARE ---
CASE MANAGEMENT DISCHARGE SUMMARY PATIENT: KEILY NORMAN UNIT: [id number] ADM DATE: 10/23/18 AGE: 58 : 62 SEX: M ROOM/BED: D.2224 AUTHOR: SELENE,DOC PHYSICIAN: REFERRING PHYSICIAN: MAYELA CARVAJAL MD DATE OF SERVICE: 11/05/18 Discharge Plan Patient Name: KEILY NORMAN Facility[facility]:[place] : 1960 Planned Disposition: Home Anticipated Discharge Date: Discharge Date: Expected LOS: Initial Reviewer: [email or web address] Initial Review Date: 10/26/2018 Generated: 11/05/18 8:18 pm Comments DCP- Discharge Planning Updated by [id number]: eBcky Mayer on 11/05/18 6:[address] RM AIR O2 SAT AT REST OBTAINED. O2 SAT WAS 87%. [facility]OU TEXTED [facility]. CM FAXED CLINICAL, O2 SAT READING AND MD ORDERS. [facility] TO BEDSIDE TO DELIVER OXYGEN AND NEBULIZER. CM ATTEMPTING TO FIND MD TO SIGN THE REQUIRED PAPERWORK. PLANISHER CANNOT SIGN. TC TO DR ROCHA AND DR CARVAJAL. MD STATEMENT NEEDED REGARDING NEBULIZER. PORTABLE OXYGEN UNIT IS AT THE BEDSIDE. DCP- Discharge Planning Updated by [id number]: Becky Mayer on 11/05/18 6:[address] CM RECEIVED A MESSAGE FROM [facility], [employer], THAT [facility] HAD CALLED TO SAY THEY COULD NOT ASSUME CARE FOR THE PATIENT. THEY ARE NOT IN-NETWORK FOR HIS CIGNA PPO PLAN. CM REC TELEPHONE CALL FROM [place].THEY WERE READY TO PROVIDE IVAB THERAPY. MAGY ADVISED BY [facility] THAT [facility] HAD ACCEPTED THE REFERRAL COR COULD NOT CONFIRM UNTIL MONDAY. TC TO [facility]. [facility] IS READY TO PROVIDE SERVICE. AWAIT DISCHARGE ORDERS W/ IVAB ORDER. TC TO [facility]. THEY ARE NOT CONTRACTED W/ CIGNA. TC TO [facility]. THEY ARE NOT CONTRACTED W/ CIGNA. TC TO [facility]. THEY HAVE A CIGNA CONTRACT NOT CERTAIN THEY ARE IN-NETWORK FOR HIS PLAN. DID NOT FEEL IT WOULD BE SAFE TO PROVIDE CARE FOR A PATIENT AT THAT DISTANCE WITH HIS SPECIFIC NEEDS. DR PAT[facility] ISSUE. ADVISED INFUSION COMPANY CAN PROVIDE NURSING FOR INFUSION BUT CANNOT DO M/W/F WOUND VAC DRESSING CHANGES. TC TO [facility]. SPOKE W/ ITA. FAXED REFERRAL. ITA MADE NUMEROUS CALL AND HAD HER TRANSFER CLERK ASSISTING. ITA CALLED CM TO ADVISE OF PROGRESS AND ISSUE. [facility] IS IN NETWORK, HOWEVER PATIENT HAS ONLY 5 TOTAL HH VISITS. HIS WOUND VAC HAS DRESSING CHANGES M/W/F. INSURANCE WILL PAY 70% PATIENT IS RESPONSIBLE FOR 30%. CM HAD ITA EXPLAIN TO THE PATIENT'S . STATES PATIENT HAS MEDICAID UNTIL 11/13/18 PER A LETTER THEY RECEIVED. TC TO [employer] TO VERIFY NUMBERS FOR SURJIT. MAX IN MED DATA CHECKED AND PER THE MEDICAID SYSTEM IT IS STILL IN PENDING STATUS. [facility] STATED SOME CORRECTIONS ARE REQUIRED BEFORE APPROVAL. CM HAS UPDATED THE PATIENT AND HIS . DCP- Discharge Planning Updated by [id number]: Tamy Hogan on 11/02/18 3:[address] Met with patient and spouse to discuss discharge planning. I reviewed IV antibiotics and they would like to use [facility]. They would like [facility] for home health and [facility] for [facility]. I notified Efren with [facility] and clinical faxed. I notified [facility] and they will check with me on Monday. I notified Jules with [facility] and will do a walk test on Monday for home oxygen. I do not have the approval back for his wound vac yet from insurance, will recheck on Monday. CM will continue to follow and assist with discharge planning/needs. DCP- Discharge Planning Updated by [id number]: Tamy Hogan on 11/02/18 1:[address] Received a call from Deann with [facility]. Deann states that she is unable to know what the out of pocket cost is, but the patient is in network. She states Jessica will be covering for her on Monday. I spoke with Debora with [facility] and she states his plan will pay 100%. CM will present both to at 1500 today when she arrives. CM will continue to follow and assist with discharge planning/needs. DCP- Discharge Planning Updated by [id number]: Tamy Hogan on 11/02/18 8:[address] Spoke with patient's today on the phone concerning what [facility], DME company and infusion company she would like to use. She states she is at work at this time and will meet with me at 3:00 today. I faxed signed Rx to [facility] for wound vac. CM will continue to follow and assist with discharge planning/needs. DCP- Discharge Planning Updated by [id number]: Tamy Hogan on 11/01/18 1:[address] CM met with patient to discuss [employer] forms for DME, HHS and infusion company. He states he does not have a preference and would like me to speak with his . I called his 's number and left a message concerning preferences. CM will continue to follow and assist with discharge planning/needs. DCP- Discharge Planning Updated by [id number]: Tamy Hogan on 10/26/18 3:[address] Patient Name: KEILY NORMAN Admission Status: ER Accout number: [id number] Admission Date: 10-23-2018 : 1960 Admission Diagnosis: Attending: MAYELA CARVAJAL Current LOS: 3 Anticipated DC Date: Planned Disposition: Home Primary Insurance: [employer] CM met with patient to complete initial dc planning assessment. CM educated patient on the CM role and verbal consent given by patient to complete assessment. Patient lives at home with his . At discharge he plans on returning and feels this is a safe discharge. CM discussed availability of home health, rehab services and medical equipment. Patient denied known discharge needs at this time. CM will continue to follow and will assist as needed with dc plans/needs. Discharge Planning Comments: Bridge Design Engineer: Tamy Mendiolaalia DCPIA - Discharge Planning Initial Assessment Updated by [id number]: Tamy Mendiolaalia on 10/26/18 4:37 pm * Is the patient Alert and Oriented? Yes * How many steps to enter\exit or inside your home? Ramp/0 * PCP Abigail Clark * Pharmacy [facility] * Preadmission Environment Home with Family * ADLs Independent * Equipment None * List name and contact numbers for known caregivers / representatives who currently or will assist patient after discharge: Debora Norman - spouse - [phone] * Verbal permission to speak to the caregivers and representatives has been obtained from the patient. Yes * Community resources currently utilized None * Additional services required to return to the preadmission environment? No * Can the patient safely return to the preadmission environment? Yes * Has this patient been hospitalized within the prior 30 days at any hospital? No Coverage Notice Reviewer: [email or web address] Thad Tamy Edison Notice Issued Date-Time: 11/02/2018 15:57 Notice Type: Patient Choice Letter Notice Delivered To: Family Member Relationship to Patient: Spouse Die Casting Supervisor Name: Delivery Method: HAND - Hand Delivered Latisha Days: Prior Verbal Notification: Recipient Understood Notice: Yes Recipient Signature: Yes Med Rec Note Co-signed by Attending: Coverage Notice Comment: [facility] FOR [place], CARESusie, LANI EDDY Last DP export: 11/05/18 6:12 p Patient Name: KEILY NORMAN Page [id number] at 1918 All edits/amendments must be made on the electronic document DICTATION DATE: 11/05/181917 GAS WORKER: ANGEL 11/05/181917 RPT#: [id number] DC DATE: STATUS: ADM IN [facility] [address] [place] [address] END OF REPORT
--- NOTE | 2018-11-05 19:55 | NUR ---
PT RESTING IN BED. ALERT AND ORIENTED. NO SIGNS OF DISTRESS. BREATHING EVEN AND UNLABORED. PT STATES NO PROBLEMS AT THIS TIME. IV SITE LT UPPER ARM MIDLINE. DRESSING CLEAN DRY AND INTACT. NO SIGNS OF INFECTION. BOWEL SOUNDS ACTIVE. SKIN CLEAN DRY AND INTACT. RT ANKLE WOUND VAC PRESENT. WILL CONTINUE PLAN OF CARE. CALL LIGHT IN REACH. BED LOWERED AND LOCKED. BED RAILS UP X2.
[2018-11-05 20:00] VITALS: BP 91/52
--- NOTE | 2018-11-05 21:00 | NUR ---
FSBS 116 NO COVERAGE NEEDED AT THIS TIME PER SS.
[2018-11-06 04:00] VITALS: BP 118/82
[2018-11-06 05:07] LABS: BASOPHILS 0.9 % (0-2); EOSINOPHILS 5.5 % (0-7); HEMATOCRIT 35.3 % (42.0-54.0); HEMOGLOBIN 11.1 g/dL (13.5-17.5); IMMATURE GRANULOCYTES 0.5 % (0-5); LYMPHOCYTES 26.5 % (15-50); MCHC 31.4 g/dL (31.0-37.0); MCV 89.1 fL (80.0-100.0); MEAN PLATELET VOLUME 9.4 fL (7.4-10.4); MONOCYTES 7.9 % (2-11); NEUTROPHILS 58.7 % (40-80); PLATELET COUNT 379 10x3/uL (130-400); RBC 3.96 10x6/uL (4.20-6.10); WBC 7.8 10x3/uL (4.8-10.8)
[2018-11-06 05:14] LABS: ALBUMIN 2.6 g/dL (3.4-5.0); ALKALINE PHOSPHATASE 80 U/L (46-116); ALT (SGPT) 58 U/L (10-68); BILIRUBIN - TOTAL 0.28 mg/dL (0.2-1.3); CALC OSMOLALITY 272 mosm/kg (275-300); CALCIUM 9.3 mg/dL (8.5-10.1); CHLORIDE - SERUM 96 mmol/L (98-107); GLUCOSE 130 mg/dL (74-106); POTASSIUM - SERUM 4.1 mmol/L (3.5-5.1); PROTEIN - SERUM 8.6 g/dL (6.4-8.2); SODIUM 135 mmol/L (136-145); UREA NITROGEN 15 mg/dL (7-18); eGFR NON AFRICAN AMERICAN 82 mL/min (90-120)
--- NOTE | 2018-11-06 05:42 | NUR ---
I have reviewed this patient and I concur with the Shift Assessment completed by the Licensed Practical Nurse today this shift.
--- NOTE | 2018-11-06 08:30 | NUR ---
ASSESSMENT PER FLOW SHEET. PT IS WITHOUT DISTRESS. WOUND VAC RIGHT FOOT ON AND WORKING.PT IS WITHOUT NEEDS.MONITOR
[2018-11-06 08:44] VITALS: BP 104/57
[2018-11-06 12:30] VITALS: BP 104/80
--- NOTE | 2018-11-06 13:45 | NUR ---
NUTRITION F/U USING AVAILABLE INFORMATION PT REMAINS AT LOW NUTRITIONAL RISK. RD FOLLOWING
--- NOTE | 2018-11-06 14:56 | MORECARE ---
CASE MANAGEMENT DISCHARGE SUMMARY PATIENT: KEILY NORMAN UNIT: [id number] ADM DATE: 10/23/18 AGE: 58 : 62 SEX: M ROOM/BED: D.2224 AUTHOR: SELENE,DOC PHYSICIAN: REFERRING PHYSICIAN: MAYELA CARVAJAL MD DATE OF SERVICE: 11/06/18 Discharge Plan Patient Name: KEILY NORMAN Facility: [facility]:[place] : 1960 Planned Disposition: Home Anticipated Discharge Date: Discharge Date: Expected LOS: Initial Reviewer: [id number] Initial Review Date: 10/26/2018 Generated: 11/06/18 3:56 pm Comments DCP- Discharge Planning Updated by [email or web address]: Frances Carlin on 11/06/18 1:[address] PATIENT'S WOUND VAC HAS NOT BEEN APPROVED YET BY HIS INSURANCE. [facility] MORALES CAN DO THE IV ABX AND HIS INSURANCE WILL COVER 100% WITH A MED BALL. HE ONLY HAS 5 HH VISITS PER YEAR ( I'M TOLD) CM WILL CONTINUE TO FOLLOW AND ASSIST WITH DC PLANNING DCP- Discharge Planning Updated by [id number]: Becky Mayer on 11/05/18 6:[address] RM AIR O2 SAT AT REST OBTAINED. O2 SAT WAS 87%. [facility]OU TEXTED [facility]. CM FAXED CLINICAL, O2 SAT READING AND MD ORDERS. [facility] TO BEDSIDE TO DELIVER OXYGEN AND NEBULIZER. CM ATTEMPTING TO FIND MD TO SIGN THE REQUIRED PAPERWORK. DAIRY PROCESSING EQUIPMENT OPERATOR CANNOT SIGN. TC TO DR ROCHA AND DR CARVAJAL. MD STATEMENT NEEDED REGARDING NEBULIZER. PORTABLE OXYGEN UNIT IS AT THE BEDSIDE. DCP- Discharge Planning Updated by [id number]: Becky Mayer on 11/05/18 6:[address] CM RECEIVED A MESSAGE FROM [facility], [employer], THAT [facility] HAD CALLED TO SAY THEY COULD NOT ASSUME CARE FOR THE PATIENT. THEY ARE NOT IN-NETWORK FOR HIS CIGNA PPO PLAN. CM REC TELEPHONE CALL FROM [facility].THEY WERE READY TO PROVIDE IVAB THERAPY. MAGY ADVISED BY [facility] THAT [facility] HAD ACCEPTED THE REFERRAL COR COULD NOT CONFIRM UNTIL MONDAY. TC TO [facility]. [facility] IS READY TO PROVIDE SERVICE. AWAIT DISCHARGE ORDERS W/ IVAB ORDER. TC TO [facility]. THEY ARE NOT CONTRACTED W/ CIGNA. TC TO [facility]. THEY ARE NOT CONTRACTED W/ CIGNA. TC TO [facility]. THEY HAVE A CIGNA CONTRACT NOT CERTAIN THEY ARE IN-NETWORK FOR HIS PLAN. DID NOT FEEL IT WOULD BE SAFE TO PROVIDE CARE FOR A PATIENT AT THAT DISTANCE WITH HIS SPECIFIC NEEDS. [facility] ISSUE. ADVISED INFUSION COMPANY CAN PROVIDE NURSING FOR INFUSION BUT CANNOT DO M/W/F WOUND VAC DRESSING CHANGES. TC TO [facility]. SPOKE W/ ITA. FAXED REFERRAL. ITA MADE NUMEROUS CALL AND HAD HER NIPPLE THREADER ASSISTING. ITA CALLED CM TO ADVISE OF PROGRESS AND ISSUE. [facility] IS IN NETWORK, HOWEVER PATIENT HAS ONLY 5 TOTAL HH VISITS. HIS WOUND VAC HAS DRESSING CHANGES M/W/F. INSURANCE WILL PAY 70% PATIENT IS RESPONSIBLE FOR 30%. CM HAD ITA EXPLAIN TO THE PATIENT'S . STATES PATIENT HAS MEDICAID UNTIL 11/13/18 PER A LETTER THEY RECEIVED. TC TO [employer] TO VERIFY NUMBERS FOR SURJIT. MAX IN [employer] CHECKED AND PER THE MEDICAID SYSTEM IT IS STILL IN PENDING STATUS. [facility] STATED SOME CORRECTIONS ARE REQUIRED BEFORE APPROVAL. CM HAS UPDATED THE PATIENT AND HIS . DCP- Discharge Planning Updated by [id number]: Tamy Hogan on 11/02/18 3:[address] Met with patient and spouse to discuss discharge planning. I reviewed IV antibiotics and they would like to use [facility]. They would like [facility] for home health and [facility]. I notified Efren with [facility] and clinical faxed. I notified [facility] and they will check with me on Monday. [facility] and will do a walk test on Monday for home oxygen. I do not have the approval back for his wound vac yet from insurance, will recheck on Monday. CM will continue to follow and assist with discharge planning/needs. DCP- Discharge Planning Updated by [id number]: Tamy Hogan on 11/02/18 1:[address] Received a call from Deann with [facility]. Deann states that she is unable to know what the out of pocket cost is, but the patient is in network. She states Jessica will be covering for her on Monday. I spoke with Debora with [facility] and she states his plan will pay 100%. CM will present both to at 1500 today when she arrives. CM will continue to follow and assist with discharge planning/needs. DCP- Discharge Planning Updated by [id number]: Tamy Mendiolaalia on 11/02/18 8:[address] Spoke with patient's today on the phone concerning what HHS, DME company and infusion company she would like to use. She states she is at work at this time and will meet with me at 3:00 today. I faxed signed [facility] for [facility] vac. CM will continue to follow and assist with discharge planning/needs. DCP- Discharge Planning Updated by [id number]: Tamy Mendiolaalia on 11/01/18 1:[address] CM met with patient to discuss [employer] forms for DME, HHS and infusion company. He states he does not have a preference and would like me to speak with his . I called his 's number and left a message concerning preferences. CM will continue to follow and assist with discharge planning/needs. DCP- Discharge Planning Updated by [id number]: Tamy Edison on 10/26/18 3:[address] Patient Name: KEILY NORMAN Admission Status: ER Accout number: [id number] Admission Date: 10-23-2018 : 1960 Admission Diagnosis: Attending: MAYELA CARVAJAL Current LOS: 3 Anticipated DC Date: Planned Disposition: Home Primary Insurance: CIGNA O CM met with patient to complete initial dc planning assessment. CM educated patient on the CM role and verbal consent given by patient to complete assessment. Patient lives at home with his . At discharge he plans on returning and feels this is a safe discharge. CM discussed availability of home health, rehab services and medical equipment. Patient denied known discharge needs at this time. CM will continue to follow and will assist as needed with dc plans/needs. Discharge Planning Comments: Coin Wrapping Machine Operator: Tamy Edison DCPIA - Discharge Planning Initial Assessment Updated by [email or web address]: Tamy Hogan on 10/26/18 4:37 pm * Is the patient Alert and Oriented? Yes * How many steps to enter\exit or inside your home? Ramp/0 * PCP Abigail Clark * Pharmacy [facility] * Preadmission Environment Home with Family * ADLs Independent * Equipment None * List name and contact numbers for known caregivers / representatives who currently or will assist patient after discharge: Debora Norman - spouse - [phone] * Verbal permission to speak to the caregivers and representatives has been obtained from the patient. Yes * Community resources currently utilized None * Additional services required to return to the preadmission environment? No * Can the patient safely return to the preadmission environment? Yes * Has this patient been hospitalized within the prior 30 days at any hospital? No Coverage Notice Reviewer: [id number] Thad Hogan Notice Issued Date-Time: 11/02/2018 15:57 Notice Type: Patient Choice Letter Notice Delivered To: Family Member Relationship to Patient: Spouse Parts Room Associate Name: Delivery Method: HAND - Hand Delivered Latisha Days: Prior Verbal Notification: Recipient Understood Notice: Yes Recipient Signature: Yes Med Rec Note Co-signed by Attending: Coverage Notice Comment: MEH[facility]Z FOR DEBBIE MANUEL MORALES, SHERWIN EDDY Last DP export: 11/05/18 6:18 p Patient Name: KEILY NORMAN Page [id number] at 1456 All edits/amendments must be made on the electronic document DICTATION DATE: 11/06/18 1456 PROFESSOR OF ENVIRONMENTAL STUDIES: ANGEL 11/06/18 1456 RPT#: [id number] DC DATE: STATUS: ADM IN [facility] [address] [place] [address] END OF REPORT
[2018-11-06 15:38] VITALS: BP 131/74
--- NOTE | 2018-11-06 19:30 | NUR ---
RECEIVED REPORT, ASSUMED CARE, SLEEPING, AROUSED EASILY TO VOICE, 2L HFNC ON, DENIES NEEDS, NO S/S OF DISTRESS NOTED, WOUND VAC TO RIGHT FOOT ON, CALL LIGHT IN REACH, BED LOWEST POSITION, WILL CONTINUE POC
[2018-11-06 20:00] VITALS: BP 160/88
--- NOTE | 2018-11-07 01:41 | NUR ---
PT REFUSED TO WEAR BIPAP. DISCUSSED BENEFITS HOWEVER PT STILL REFUSED
[2018-11-07 03:35] VITALS: BP 105/65
[2018-11-07 07:01] LABS: BASOPHILS 1.1 % (0-2); EOSINOPHILS 5.2 % (0-7); HEMATOCRIT 35.9 % (42.0-54.0); HEMOGLOBIN 11.3 g/dL (13.5-17.5); IMMATURE GRANULOCYTES 0.6 % (0-5); LYMPHOCYTES 19.6 % (15-50); MCHC 31.5 g/dL (31.0-37.0); MCV 88.9 fL (80.0-100.0); MEAN PLATELET VOLUME 9.6 fL (7.4-10.4); MONOCYTES 9.4 % (2-11); NEUTROPHILS 64.1 % (40-80); PLATELET COUNT 347 10x3/uL (130-400); RBC 4.04 10x6/uL (4.20-6.10); WBC 7.1 10x3/uL (4.8-10.8)
[2018-11-07 07:23] LABS: ALBUMIN 2.6 g/dL (3.4-5.0); ALKALINE PHOSPHATASE 80 U/L (46-116); ALT (SGPT) 51 U/L (10-68); BILIRUBIN - TOTAL 0.22 mg/dL (0.2-1.3); CALC OSMOLALITY 273 mosm/kg (275-300); CALCIUM 9.5 mg/dL (8.5-10.1); CARBON DIOXIDE 33.2 mmol/L (21.0-32.0); CHLORIDE - SERUM 97 mmol/L (98-107); CREATININE - SERUM 0.8 mg/dL (0.6-1.3); GLUCOSE 132 mg/dL (74-106); POTASSIUM - SERUM 4.2 mmol/L (3.5-5.1); PROTEIN - SERUM 8.7 g/dL (6.4-8.2); SODIUM 136 mmol/L (136-145); UREA NITROGEN 13 mg/dL (7-18); eGFR NON AFRICAN AMERICAN > 90 mL/min (90-120)
--- NOTE | 2018-11-07 07:45 | NUR ---
MORNING ASSESSMENT COMPLETE. SEE ASSESSMENT FLOWSHEET FOR FURTHER DETAILS. PT LYING INBED AAO X4 TO PERSON, PLACE, TIME, AND SITUATION. DENIES NEEDS AT THIS TIME. CL IN REACH. SIDE RAILS UP X3 FOR PT SAEFTY. BED IN LOWEST POSITION.
[2018-11-07 08:30] VITALS: BP 105/55
--- NOTE | 2018-11-07 08:30 | NUR ---
PT REFUSING MORNING MEDS. DID PT EDUCATION AND HE IS NOW SAYING HE WILL TAKE THEM.
[2018-11-07 11:56] VITALS: BP 110/60
--- NOTE | 2018-11-07 14:53 | MORECARE ---
CASE MANAGEMENT DISCHARGE SUMMARY PATIENT: KEILY NORMAN UNIT: [id number] ADM DATE: 10/23/18 AGE: 58 : 62 SEX: M ROOM/BED: D.2224 AUTHOR: SELENE,DOC PHYSICIAN: REFERRING PHYSICIAN: MAYELA CARVAJAL MD DATE OF SERVICE: 11/07/18 Discharge Plan Patient Name: KEILY NORMAN Facility: [facility]:[place] : 1960 Planned Disposition: Home Anticipated Discharge Date: Discharge Date: Expected LOS: Initial Reviewer: [id number] Initial Review Date: 10/26/2018 Generated: 11/07/18 3:53 pm Comments DCP- Discharge Planning Updated by [id number]: Frances Carlin on 11/06/18 1:[address] PATIENT'S WOUND VAC HAS NOT BEEN APPROVED YET BY HIS INSURANCE. DEBBIE MORALES CAN DO THE IV ABX AND HIS INSURANCE WILL COVER 100% WITH A MED BALL. HE ONLY HAS 5 HH VISITS PER YEAR ( I'M TOLD) CM WILL CONTINUE TO FOLLOW AND ASSIST WITH DC PLANNING DCP- Discharge Planning Updated by [id number]: Becky Mayer on 11/05/18 6:[address] RM AIR O2 SAT AT REST OBTAINED. O2 SAT WAS 87%. SEKOU TEXTED [facility]. CM FAXED CLINICAL, O2 SAT READING AND MD ORDERS. [facility] TO BEDSIDE TO DELIVER OXYGEN AND NEBULIZER. CM ATTEMPTING TO FIND MD TO SIGN THE REQUIRED PAPERWORK. UI DEVELOPER DESIGNER CANNOT SIGN. TC TO DR ROCHA AND DR CARVAJAL. MD STATEMENT NEEDED REGARDING NEBULIZER. PORTABLE OXYGEN UNIT IS AT THE BEDSIDE. DCP- Discharge Planning Updated by [email or web address]: Becky Mayer on 11/05/18 6:[address] CM RECEIVED A MESSAGE FROM SEKOU, PIN MACHINE TENDER, THAT [facility] HAD CALLED TO SAY THEY COULD NOT ASSUME CARE FOR THE PATIENT. THEY ARE NOT IN-NETWORK FOR HIS CIGNA PPO PLAN. CM REC TELEPHONE CALL FROM [facility].THEY WERE READY TO PROVIDE IVAB THERAPY. MAGY ADVISED BY SEKOU THAT [facility] HAD ACCEPTED THE REFERRAL COR COULD NOT CONFIRM UNTIL MONDAY. TC TO [facility]. [facility] IS READY TO PROVIDE SERVICE. AWAIT DISCHARGE ORDERS W/ IVAB ORDER. TC TO [facility]. THEY ARE NOT CONTRACTED W/ CIGNA. TC TO [facility]. THEY ARE NOT CONTRACTED W/ CIGNA. TC TO [facility]. THEY HAVE A CIGNA CONTRACT NOT CERTAIN THEY ARE IN-NETWORK FOR HIS PLAN. DID NOT FEEL IT WOULD BE SAFE TO PROVIDE CARE FOR A PATIENT AT THAT DISTANCE WITH HIS SPECIFIC NEEDS. [facility]. ADVISED INFUSION COMPANY CAN PROVIDE NURSING FOR INFUSION BUT CANNOT DO M/W/F WOUND VAC DRESSING CHANGES. TC TO [facility]. SPOKE W/ ITA. FAXED REFERRAL. ITA MADE NUMEROUS CALL AND HAD HER ELECTRONIC HEALTH RECORDS SPECIALIST ASSISTING. ITA CALLED CM TO ADVISE OF PROGRESS AND ISSUE. [facility] IS IN NETWORK, HOWEVER PATIENT HAS ONLY 5 TOTAL HH VISITS. HIS WOUND VAC HAS DRESSING CHANGES M/W/F. INSURANCE WILL PAY 70% PATIENT IS RESPONSIBLE FOR 30%. CM HAD ITA EXPLAIN TO THE PATIENT'S . STATES PATIENT HAS MEDICAID UNTIL 11/13/18 PER A LETTER THEY RECEIVED. TC TO [employer] TO VERIFY NUMBERS FOR SURJIT. MAX IN [facility] CHECKED AND PER THE MEDICAID SYSTEM IT IS STILL IN PENDING STATUS. [facility] STATED SOME CORRECTIONS ARE REQUIRED BEFORE APPROVAL. CM HAS UPDATED THE PATIENT AND HIS . DCP- Discharge Planning Updated by [email or web address]: Tamy Hogan on 11/02/18 3:[address] Met with patient and spouse to discuss discharge planning. I reviewed IV antibiotics and they would like to use [facility]. They would like [facility] for home health and [facility] for [employer]. I notified Efren with [facility] and clinical faxed. I notified [facility] and they will check with me on Monday. I notified Jules with [facility] and will do a walk test on Monday for home oxygen. I do not have the approval back for his wound vac yet from insurance, will recheck on Monday. CM will continue to follow and assist with discharge planning/needs. DCP- Discharge Planning Updated by [email or web address]: Tamy Hogan on 11/02/18 1:[address] Received a call from Deann with [facility]. Deann states that she is unable to know what the out of pocket cost is, but the patient is in network. She states Jessica will be covering for her on Monday. I spoke with Debora with [facility] and she states his plan will pay 100%. CM will present both to at 1500 today when she arrives. CM will continue to follow and assist with discharge planning/needs. DCP- Discharge Planning Updated by [id number]: Tamy Mendiolaalia on 11/02/18 8:[address] Spoke with patient's today on the phone concerning what HHS, DME company and infusion company she would like to use. She states she is at work at this time and will meet with me at 3:00 today. I faxed signed Rx to [facility] for wound vac. CM will continue to follow and assist with discharge planning/needs. DCP- Discharge Planning Updated by [id number]: Tamy Mendiolaalia on 11/01/18 1:[address] CM met with patient to discuss ME[facility] forms for DME, HHS and infusion company. He states he does not have a preference and would like me to speak with his . I called his 's number and left a message concerning preferences. CM will continue to follow and assist with discharge planning/needs. DCP- Discharge Planning Updated by [email or web address]: Tamy Edison on 10/26/18 3:[address] Patient Name: KEILY NORMAN Admission Status: ER Accout number: [id number] Admission Date: 10-23-2018 : 1960 Admission Diagnosis: Attending: MAYEAL CARVAJAL Current LOS: 3 Anticipated DC Date: Planned Disposition: Home Primary Insurance: CIGNA O CM met with patient to complete initial dc planning assessment. CM educated patient on the CM role and verbal consent given by patient to complete assessment. Patient lives at home with his . At discharge he plans on returning and feels this is a safe discharge. CM discussed availability of home health, rehab services and medical equipment. Patient denied known discharge needs at this time. CM will continue to follow and will assist as needed with dc plans/needs. Discharge Planning Comments: Air Brake Rigger: Tamy Edison DCPIA - Discharge Planning Initial Assessment Updated by [id number]: Tamy Hogan on 10/26/18 4:37 pm * Is the patient Alert and Oriented? Yes * How many steps to enter\exit or inside your home? Ramp/0 * PCP Abigail Clark * Pharmacy [facility] * Preadmission Environment Home with Family * ADLs Independent * Equipment None * List name and contact numbers for known caregivers / representatives who currently or will assist patient after discharge: Debora Norman - spouse - [phone] * Verbal permission to speak to the caregivers and representatives has been obtained from the patient. Yes * Community resources currently utilized None * Additional services required to return to the preadmission environment? No * Can the patient safely return to the preadmission environment? Yes * Has this patient been hospitalized within the prior 30 days at any hospital? No External Providers External Provider: [facility] Contact Date: Service Request Date: Service Type: Resolution: Reviewer: Comments: Coverage Notice Reviewer: [id number] Thad Tamy Mendiolaalia Notice Issued Date-Time: 11/02/2018 15:57 Notice Type: Patient Choice Letter Notice Delivered To: Family Member Relationship to Patient: Spouse Continuous Drier Helper Name: Delivery Method: HAND - Hand Delivered Latisha Days: Prior Verbal Notification: Recipient Understood Notice: Yes Recipient Signature: Yes Med Rec Note Co-signed by Attending: Coverage Notice Comment: ME[facility] FOR [facility] AND[facility], CARESusie, SHERWIN EDDY Last DP export: 11/06/18 1:56 p Patient Name: KEILY NORMAN Page [phone] at 1453 All edits/amendments must be made on the electronic document DICTATION DATE: 11/07/181451 AIRPLANE DISPATCH CLERK: ANGEL 11/07/181451 RPT#: [id number] DC DATE: STATUS: ADM IN [facility] [address] [place] [address] END OF REPORT
[2018-11-07 15:13] VITALS: BP 110/63
--- NOTE | 2018-11-07 16:29 | MORECARE ---
CASE MANAGEMENT DISCHARGE SUMMARY PATIENT: KEILY NORMAN UNIT: [id number] ADM DATE: 10/23/18 AGE: 58 : 62 SEX: M ROOM/BED: D.2224 AUTHOR: SELENE,DOC PHYSICIAN: REFERRING PHYSICIAN: MAYELA CARVAJAL MD DATE OF SERVICE: 11/07/18 Discharge Plan Patient Name: KEILY NORMAN Facility: [facility]:[place] : 1960 Planned Disposition: Home Anticipated Discharge Date: Discharge Date: Expected LOS: Initial Reviewer: [email or web address] Initial Review Date: 10/26/2018 Generated: 11/07/18 5:29 pm Comments DCP- Discharge Planning Updated by [id number]: Caity Swain on 11/07/18 3:[address] Patient Name: KEILY NORMAN Admission Status: ER Accout number: [id number] Admission Date: 10-23-2018 : 1960 Admission Diagnosis:CELLULITIS OF LEFT LOWER LIMB Attending: MAYELA CARVAJAL Current LOS: 15 Anticipated DC Date: Planned Disposition: Home Primary Insurance: CIGNA PPO Discharge Planning Comments: NONE OF THE HOME HEALTH AGENCIES WILL TAKE THE PATIENT BECAUSE OF HIS INS. HE ONLY HAS 5 DAYS OF HH AVAILABLE. I SPOKE WITH EVELYN DAVIS AND WE ARE GOING TO SEE IF A SNF WILL ACCEPT HIM. MEHNAZ LEFT WITH PATIENT, HE IS TALKING TO HIS AND RN FRIEND TO CHOSE A SNF. WOUND VAC WAS RECIEVED AND IS PLACED AT NURSING AREA FOR PATIENT AT TIME OF DC. CM WILL FOLLOW AND ASSIST NEEDED WITH DC PLANNING/NEEDS. ALSO PATIENT DOES HAVE [facility]ANC[facility] , NUMBER IS [id number]. MED DATA STATES IT WILL SHOW IN ACTIVE BUT IT IS ACTIVE THOUGH UNTIL NOVEMBER. Holistic Specialist: Caity Swain DCP- Discharge Planning Updated by [email or web address]: Frances Carlin on 11/06/18 1:[address] PATIENT'S WOUND VAC HAS NOT BEEN APPROVED YET BY HIS INSURANCE. [facility] MORALES CAN DO THE IV ABX AND HIS INSURANCE WILL COVER 100% WITH A MED BALL. HE ONLY HAS 5 HH VISITS PER YEAR ( I'M TOLD) CM WILL CONTINUE TO FOLLOW AND ASSIST WITH DC PLANNING DCP- Discharge Planning Updated by [id number]: Becky Mayer on 11/05/18 6:[address] RM AIR O2 SAT AT REST OBTAINED. O2 SAT WAS 87%. [facility]KOU TEXTED [facility]. CM FAXED CLINICAL, O2 SAT READING AND MD ORDERS. [facility] TO BEDSIDE TO DELIVER OXYGEN AND NEBULIZER. CM ATTEMPTING TO FIND MD TO SIGN THE REQUIRED PAPERWORK. CISTERN ROOM WORKING SUPERVISOR CANNOT SIGN. TC TO DR ROCHA AND DR CARVAJAL. MD STATEMENT NEEDED REGARDING NEBULIZER. PORTABLE OXYGEN UNIT IS AT THE BEDSIDE. DCP- Discharge Planning Updated by [id number]: Becky Leyla on 11/05/18 6:[address] CM RECEIVED A MESSAGE FROM [facility]KOU, HORSE SHOW JUDGE, THAT [facility] HAD CALLED TO SAY THEY COULD NOT ASSUME CARE FOR THE PATIENT. THEY ARE NOT IN-NETWORK FOR HIS CIGNA PPO PLAN. CM REC TELEPHONE CALL FROM [facility].THEY WERE READY TO PROVIDE IVAB THERAPY. CM ADVISED BY SEKOU THAT [facility] HAD ACCEPTED THE REFERRAL [facility] COULD NOT CONFIRM UNTIL MONDAY. TC TO [facility]. [facility] READ[facility] TO PROVIDE SERVICE. AWAIT DISCHARGE ORDERS W/ IVAB ORDER. TC TO [facility]. THEY ARE NOT CONTRACTED W/ CIGNA. TC TO [facility]. THEY ARE NOT CONTRACTED W/ CIGNA. TC TO [facility]. THEY HAVE A CIGNA CONTRACT NOT CERTAIN THEY ARE IN-NETWORK FOR HIS PLAN. DID NOT FEEL IT WOULD BE SAFE TO PROVIDE CARE FOR A PATIENT AT THAT DISTANCE WITH HIS SPECIFIC NEEDS. DR PATEL COGNIZANT [facility] ISSUE. ADVISED INFUSION COMPANY CAN PROVIDE NURSING FOR INFUSION BUT CANNOT DO M/W/F WOUND VAC DRESSING CHANGES. TC TO [facility]. SPOKE W/ ITA. FAXED REFERRAL. ITA MADE NUMEROUS CALL AND HAD HER AIR SUPPORT OPERATIONS OPERATOR ASSISTING. ITA CALLED CM TO ADVISE OF PROGRESS AND ISSUE. [facility] IS IN NETWORK, HOWEVER PATIENT HAS ONLY 5 TOTAL HH VISITS. HIS WOUND VAC HAS DRESSING CHANGES M/W/F. INSURANCE WILL PAY 70% PATIENT IS RESPONSIBLE FOR 30%. CM HAD ITA EXPLAIN TO THE PATIENT'S . STATES PATIENT HAS MEDICAID UNTIL 11/13/18 PER A LETTER THEY RECEIVED. TC TO [employer] TO VERIFY NUMBERS FOR SURJIT. MAX IN MED DATA CHECKED AND PER THE MEDICAID SYSTEM IT IS STILL IN PENDING STATUS. [facility] STATED SOME CORRECTIONS ARE REQUIRED BEFORE APPROVAL. CM HAS UPDATED THE PATIENT AND HIS . DCP- Discharge Planning Updated by [email or web address]: Tamy Hogan on 11/02/18 3:[address] Met with patient and spouse to discuss discharge planning. I reviewed IV antibiotics and they would like to use [facility]. They would like [facility] for home health and [facility] for DME company. I notified Efren with [facility] and clinical faxed. I notified [facility] and they will check with me on Monday. I notified Jules with [facility] and will do a walk test on Monday for home oxygen. I do not have the approval back for his wound vac yet from insurance, will recheck on Monday. CM will continue to follow and assist with discharge planning/needs. DCP- Discharge Planning Updated by [id number]: Tamy Hogan on 11/02/18 1:[address] Received a call from Deann with [facility]. Deann states that she is unable to know what the out of pocket cost is, but the patient is in network. She states Jessica will be covering for her on Monday. I spoke with Debora with [facility] and she states his plan will pay 100%. CM will present both to at 1500 today when she arrives. CM will continue to follow and assist with discharge planning/needs. DCP- Discharge Planning Updated by [id number]: Tamy Hogan on 11/02/18 8:[address] Spoke with patient's today on the phone concerning what HHS, DME company and infusion company she would like to use. She states she is at work at this time and will meet with me at 3:00 today. I faxed signed Rx to [facility] for wound vac. CM will continue to follow and assist with discharge planning/needs. DCP- Discharge Planning Updated by [id number]: Tamy Hogan on 11/01/18 1:[address] CM met with patient to discuss MEH[facility] forms for DME, HHS and infusion company. He states he does not have a preference and would like me to speak with his . I called his 's number and left a message concerning preferences. CM will continue to follow and assist with discharge planning/needs. DCP- Discharge Planning Updated by [id number]: Tamy Hogan on 10/26/18 3:[address] Patient Name: KEILY NORMAN Admission Status: ER Accout number: [id number] Admission Date: 10-23-2018 : 1960 Admission Diagnosis: Attending: MAYELA CARVAJAL Current LOS: 3 Anticipated DC Date: Planned Disposition: Home Primary Insurance: [employer] O CM met with patient to complete initial dc planning assessment. CM educated patient on the CM role and verbal consent given by patient to complete assessment. Patient lives at home with his . At discharge he plans on returning and feels this is a safe discharge. CM discussed availability of home health, rehab services and medical equipment. Patient denied known discharge needs at this time. CM will continue to follow and will assist as needed with dc plans/needs. Discharge Planning Comments: Holistic Specialist: Tamy Hogan DCPIA - Discharge Planning Initial Assessment Updated by [id number]: Tamy Hogan on 10/26/18 4:37 pm * Is the patient Alert and Oriented? Yes * How many steps to enter\exit or inside your home? Ramp/0 * PCP Abigail Clark * Pharmacy [facility] * Preadmission Environment Home with Family * ADLs Independent * Equipment None * List name and contact numbers for known caregivers / representatives who currently or will assist patient after discharge: Debora Norman - spouse - [phone] * Verbal permission to speak to the caregivers and representatives has been obtained from the patient. Yes * Community resources currently utilized None * Additional services required to return to the preadmission environment? No * Can the patient safely return to the preadmission environment? Yes * Has this patient been hospitalized within the prior 30 days at any hospital? No Coverage Notice Reviewer: [id number] - Tamy Hogan Notice Issued Date-Time: 11/02/2018 15:57 Notice Type: Patient Choice Letter Notice Delivered To: Family Member Relationship to Patient: Spouse Nurse Instructor Name: Delivery Method: HAND - Hand Delivered Latisha Days: Prior Verbal Notification: Recipient Understood Notice: Yes Recipient Signature: Yes Med Rec Note Co-signed by Attending: Coverage Notice Comment: MEHNAZ FOR DEBBIE MORALES, CARESusie, LANI EDDY Last DP export: 11/07/18 1:53 p Patient Name: KEILY NORMAN Page [id number] at 1629 All edits/amendments must be made on the electronic document DICTATION DATE: 11/07/18 8814 MASONRY INSTALLER: ANGEL 11/07/18 1629 RPT#: [id number] DC DATE: STATUS: ADM IN [facility] [address] [place] [address] END OF REPORT
--- NOTE | 2018-11-07 16:37 | MORECARE ---
CASE MANAGEMENT DISCHARGE SUMMARY PATIENT: KEILY NORMAN UNIT: [id number] ADM DATE: 10/23/18 AGE: 58 : 62 SEX: M ROOM/BED: D.2224 AUTHOR: SELENE,DOC PHYSICIAN: REFERRING PHYSICIAN: MAYELA CARVAJAL MD DATE OF SERVICE: 11/07/18 Discharge Plan Patient Name: KEILY NORMAN Facility: [facility]:[place] : 1960 Planned Disposition: Home Anticipated Discharge Date: Discharge Date: Expected LOS: Initial Reviewer: [id number] Initial Review Date: 10/26/2018 Generated: 11/07/18 5:37 pm Comments DCP- Discharge Planning Updated by [id number]: Caity Swain on 11/07/18 3:[address] Patient Name: KEILY NORMAN Admission Status: ER Accout number: [id number] Admission Date: 10-23-2018 : 1960 Admission Diagnosis:CELLULITIS OF LEFT LOWER LIMB Attending: MAYELA CARVAJAL Current LOS: 15 Anticipated DC Date: Planned Disposition: Home Primary Insurance: CIGNA PPO Discharge Planning Comments: NONE OF THE HOME HEALTH AGENCIES WILL TAKE THE PATIENT BECAUSE OF HIS INS. HE ONLY HAS 5 DAYS OF HH AVAILABLE. I SPOKE WITH EVELYN DAVIS AND WE ARE GOING TO SEE IF A SNF WILL ACCEPT HIM. MEHNAZ LEFT WITH PATIENT, HE IS TALKING TO HIS AND RN FRIEND TO CHOSE A SNF. WOUND VAC WAS RECIEVED AND IS PLACED AT NURSING AREA FOR PATIENT AT TIME OF DC. CM WILL FOLLOW AND ASSIST NEEDED WITH DC PLANNING/NEEDS. ALSO PATIENT DOES HAVE FRANCIS , NUMBER IS [id number]. MED DATA STATES IT WILL SHOW IN ACTIVE BUT IT IS ACTIVE THOUGH UNTIL NOVEMBER. Charge Attendant: Caity Swain DCP- Discharge Planning Updated by [id number]: Frances Carlin on 11/06/18 1:[address] PATIENT'S WOUND VAC HAS NOT BEEN APPROVED YET BY HIS INSURANCE. [facility] CAN DO THE IV ABX AND HIS INSURANCE WILL COVER 100% WITH A MED BALL. HE ONLY HAS 5 HH VISITS PER YEAR ( I'M TOLD) CM WILL CONTINUE TO FOLLOW AND ASSIST WITH DC PLANNING DCP- Discharge Planning Updated by [email or web address]: Becky Mayer on 11/05/18 6:[address] RM AIR O2 SAT AT REST OBTAINED. O2 SAT WAS 87%. SEKOU TEXTED [facility]. CM FAXED CLINICAL, O2 SAT READING AND MD ORDERS. [facility] TO BEDSIDE TO DELIVER OXYGEN AND NEBULIZER. CM ATTEMPTING TO FIND MD TO SIGN THE REQUIRED PAPERWORK. ELECTRICAL ENGINEERING DIRECTOR CANNOT SIGN. TC TO DR ROCHA AND DR CARVAJAL. MD STATEMENT NEEDED REGARDING NEBULIZER. PORTABLE OXYGEN UNIT IS AT THE BEDSIDE. DCP- Discharge Planning Updated by [id number]: Becky Leyla on 11/05/18 6:[address] CM RECEIVED A MESSAGE FROM SEKOU, FLORICULTURIST, THAT [facility] HAD CALLED TO SAY THEY COULD NOT ASSUME CARE FOR THE PATIENT. THEY ARE NOT IN-NETWORK FOR HIS CIGNA PPO PLAN. CM REC TELEPHONE CALL FROM [facility].THEY WERE READY TO PROVIDE IVAB THERAPY. CM ADVISED BY SEKOU THAT [facility] HAD ACCEPTED THE REFERRAL [facility] COULD NOT CONFIRM UNTIL MONDAY. TC TO [facility]. [facility] IS READY TO PROVIDE SERVICE. AWAIT DISCHARGE ORDERS W/ IVAB ORDER. TC TO [facility]. THEY ARE NOT CONTRACTED W/ CIGNA. TC TO [facility]. THEY ARE NOT CONTRACTED W/ CIGNA. TC TO [facility]. THEY HAVE A CIGNA CONTRACT NOT CERTAIN THEY ARE IN-NETWORK FOR HIS PLAN. DID NOT FEEL IT WOULD BE SAFE TO PROVIDE CARE FOR A PATIENT AT THAT DISTANCE WITH HIS SPECIFIC NEEDS. DR PATEL COGNIZANT [facility] ISSUE. ADVISED INFUSION COMPANY CAN PROVIDE NURSING FOR INFUSION BUT CANNOT DO M/W/F WOUND VAC DRESSING CHANGES. TC TO [facility]. SPOKE W/ ITA. FAXED REFERRAL. ITA MADE NUMEROUS CALL AND HAD HER COMMISSARY WORKER ASSISTING. ITA CALLED CM TO ADVISE OF PROGRESS AND ISSUE. [facility] IS IN NETWORK, HOWEVER PATIENT HAS ONLY 5 TOTAL HH VISITS. HIS WOUND VAC HAS DRESSING CHANGES M/W/F. INSURANCE WILL PAY 70% PATIENT IS RESPONSIBLE FOR 30%. CM HAD ITA EXPLAIN TO THE PATIENT'S . STATES PATIENT HAS MEDICAID UNTIL 11/13/18 PER A LETTER THEY RECEIVED. TC TO [employer] TO VERIFY NUMBERS FOR SURJIT. MAX IN MED DATA CHECKED AND PER THE MEDICAID SYSTEM IT IS STILL IN PENDING STATUS. [facility] STATED SOME CORRECTIONS ARE REQUIRED BEFORE APPROVAL. CM HAS UPDATED THE PATIENT AND HIS . DCP- Discharge Planning Updated by [id number]: Tamy Hogan on 11/02/18 3:[address] Met with patient and spouse to discuss discharge planning. I reviewed IV antibiotics and they would like to use [facility]. They would like [facility] for home health and [facility] for DME company. I notified Efren with [facility] and clinical faxed. I notified [facility] and they will check with me on Monday. I notified Jules with [facility] and will do a walk test on Monday for home oxygen. I do not have the approval back for his wound vac yet from insurance, will recheck on Monday. CM will continue to follow and assist with discharge planning/needs. DCP- Discharge Planning Updated by [email or web address]: Tamy Hogan on 11/02/18 1:[address] Received a call from Deann with [facility]. Deann states that she is unable to know what the out of pocket cost is, but the patient is in network. She states Jessica will be covering for her on Monday. I spoke with Debora with [facility] and she states his plan will pay 100%. CM will present both to at 1500 today when she arrives. CM will continue to follow and assist with discharge planning/needs. DCP- Discharge Planning Updated by [id number]: Tamy Hogan on 11/02/18 8:[address] Spoke with patient's today on the phone concerning what HHS, DME company and infusion company she would like to use. She states she is at work at this time and will meet with me at 3:00 today. I faxed signed Rx to [facility] for wound vac. CM will continue to follow and assist with discharge planning/needs. DCP- Discharge Planning Updated by [email or web address]: Tamy Hogan on 11/01/18 1:[address] CM met with patient to discuss MEHNAZ forms for DME, HHS and infusion company. He states he does not have a preference and would like me to speak with his . I called his 's number and left a message concerning preferences. CM will continue to follow and assist with discharge planning/needs. DCP- Discharge Planning Updated by [email or web address]: Tamy Hogan on 10/26/18 3:[address] Patient Name: KEILY NORMAN Admission Status: ER Accout number: [id number] Admission Date: 10-23-2018 : 1960 Admission Diagnosis: Attending: MAYELA CARVAJAL Current LOS: 3 Anticipated DC Date: Planned Disposition: Home Primary Insurance: [employer] O CM met with patient to complete initial dc planning assessment. CM educated patient on the CM role and verbal consent given by patient to complete assessment. Patient lives at home with his . At discharge he plans on returning and feels this is a safe discharge. CM discussed availability of home health, rehab services and medical equipment. Patient denied known discharge needs at this time. CM will continue to follow and will assist as needed with dc plans/needs. Discharge Planning Comments: Charge Attendant: Tamy Hogan DCPIA - Discharge Planning Initial Assessment Updated by [email or web address]: Tamy Hogan on 10/26/18 4:37 pm * Is the patient Alert and Oriented? Yes * How many steps to enter\exit or inside your home? Ramp/0 * PCP Abigail Clark * Pharmacy [facility] * Preadmission Environment Home with Family * ADLs Independent * Equipment None * List name and contact numbers for known caregivers / representatives who currently or will assist patient after discharge: Debora Norman - spouse - [phone] * Verbal permission to speak to the caregivers and representatives has been obtained from the patient. Yes * Community resources currently utilized None * Additional services required to return to the preadmission environment? No * Can the patient safely return to the preadmission environment? Yes * Has this patient been hospitalized within the prior 30 days at any hospital? No External Providers External Provider: [facility] Next Contact Date: Service Request Date: Service Type: Resolution: Reviewer: Comments: Coverage Notice Reviewer: [id number] - Tamy Hogan Notice Issued Date-Time: 11/02/2018 15:57 Notice Type: Patient Choice Letter Notice Delivered To: Family Member Relationship to Patient: Spouse Swedish Masseuse Name: Delivery Method: HAND - Hand Delivered Latisha Days: Prior Verbal Notification: Recipient Understood Notice: Yes Recipient Signature: Yes Med Rec Note Co-signed by Attending: Coverage Notice Comment: MEHNAZ FOR MANUEL BOWIE, LANI EDDY Last DP export: 11/07/18 3:29 p Patient Name: KEILY NORMAN Page [id number] at 1637 All edits/amendments must be made on the electronic document DICTATION DATE: 11/07/181635 INTERNET SPECIALIST: ANGEL 11/07/181635 RPT#: [id number] DC DATE: STATUS: ADM IN [facility] [address] [place] [address] END OF REPORT
--- NOTE | 2018-11-07 16:47 | MORECARE ---
CASE MANAGEMENT DISCHARGE SUMMARY PATIENT: KEILY NORMAN UNIT: [id number] ADM DATE: 10/23/18 AGE: 58 : 62 SEX: M ROOM/BED: D.2224 AUTHOR: SELENE,DOC PHYSICIAN: REFERRING PHYSICIAN: MAYELA CARVAJAL MD DATE OF SERVICE: 11/07/18 Discharge Plan Patient Name: KEILY NORMAN Facility: [facility]:[place] : 1960 Planned Disposition: Home Anticipated Discharge Date: Discharge Date: Expected LOS: Initial Reviewer: [email or web address] Initial Review Date: 10/26/2018 Generated: 11/07/18 5:46 pm Comments DCP- Discharge Planning Updated by [id number]: Caity Swain on 11/07/18 3:[address] Patient Name: KEILY NORMAN Admission Status: ER Accout number: [id number] Admission Date: 10-23-2018 : 1960 Admission Diagnosis:CELLULITIS OF LEFT LOWER LIMB Attending: MAYELA CARVAJAL Current LOS: 15 Anticipated DC Date: Planned Disposition: Home Primary Insurance: CIGNA PPO Discharge Planning Comments: NONE OF THE HOME HEALTH AGENCIES WILL TAKE THE PATIENT BECAUSE OF HIS INS. HE ONLY HAS 5 DAYS OF HH AVAILABLE. I SPOKE WITH EVELYN DAVIS AND WE ARE GOING TO SEE IF A SNF WILL ACCEPT HIM. MEHNAZ LEFT WITH PATIENT, HE IS TALKING TO HIS AND RN FRIEND TO CHOSE A SNF. WOUND VAC WAS RECIEVED AND IS PLACED AT NURSING AREA FOR PATIENT AT TIME OF DC. WILL FOLLOW AND ASSIST NEEDED WITH DC PLANNING/NEEDS. ALSO PATIENT DOES HAVE FRANCIS , NUMBER IS [id number]. MED DATA STATES IT WILL SHOW IN ACTIVE BUT IT IS ACTIVE THOUGH UNTIL NOVEMBER. Esthetician Facialist: Caity Swain Appended by Caity Swain on 11/07/2018 16:41 CDT: EVERY HH AGENCY CONTACTED, NONE WILL ACCEPT PATIENT. MEHNAZ SIGNED FOR [facility], THEY WILL CALL BACK TOMORROW AND LET US KNOW SOMETHING. DCP- Discharge Planning Updated by [id number]: Frances Carlin on 11/06/18 1:[address] PATIENT'S WOUND VAC HAS NOT BEEN APPROVED YET BY HIS INSURANCE. [facility] CAN DO THE IV ABX AND HIS INSURANCE WILL COVER 100% WITH A MED BALL. HE ONLY HAS 5 HH VISITS PER YEAR ( I'M TOLD) CM WILL CONTINUE TO FOLLOW AND ASSIST WITH DC PLANNING DCP- Discharge Planning Updated by [id number]: Becky Mayer on 11/05/18 6:[address] RM AIR O2 SAT AT REST OBTAINED. O2 SAT WAS 87%. SEKOU TEXTED [facility]. CM FAXED CLINICAL, O2 SAT READING AND MD ORDERS. [facility] TO BEDSIDE TO DELIVER OXYGEN AND NEBULIZER. CM ATTEMPTING TO FIND MD TO SIGN THE REQUIRED PAPERWORK. WHEAT WASHER CANNOT SIGN. TC TO DR ROCHA AND DR CARVAJAL. MD STATEMENT NEEDED REGARDING NEBULIZER. PORTABLE OXYGEN UNIT IS AT THE BEDSIDE. DCP- Discharge Planning Updated by [id number]: Becky Mayer on 11/05/18 6:[address] CM RECEIVED A MESSAGE FROM SEKOU, MANAGER FUNCTIONAL, THAT [facility] HAD CALLED TO SAY THEY COULD NOT ASSUME CARE FOR THE PATIENT. THEY ARE NOT IN-NETWORK FOR HIS CIGNA PPO PLAN. CM REC TELEPHONE CALL FROM [facility].THEY WERE READY TO PROVIDE IVAB THERAPY. CM ADVISED BY SEKOU THAT [facility] HAD ACCEPTED THE REFERRAL [facility] COULD NOT CONFIRM UNTIL MONDAY. TC TO [facility]. [facility] IS READY TO PROVIDE SERVICE. AWAIT DISCHARGE ORDERS W/ IVAB ORDER. TC TO [facility]. THEY ARE NOT CONTRACTED W/ CIGNA. TC TO [facility]. THEY ARE NOT CONTRACTED W/ CIGNA. TC TO [facility]. THEY HAVE A CIGNA CONTRACT NOT CERTAIN THEY ARE IN-NETWORK FOR HIS PLAN. DID NOT FEEL IT WOULD BE SAFE TO PROVIDE CARE FOR A PATIENT AT THAT DISTANCE WITH HIS SPECIFIC NEEDS. DR PATEL COGNIZANT [facility] ISSUE. ADVISED INFUSION COMPANY CAN PROVIDE NURSING FOR INFUSION BUT CANNOT DO M/W/F WOUND VAC DRESSING CHANGES. TC TO [facility]. SPOKE W/ ITA. FAXED REFERRAL. ITA MADE NUMEROUS CALL AND HAD HER SEASONING MIXER ASSISTING. ITA CALLED CM TO ADVISE OF PROGRESS AND ISSUE. [facility] IS IN NETWORK, HOWEVER PATIENT HAS ONLY 5 TOTAL HH VISITS. HIS WOUND VAC HAS DRESSING CHANGES M/W/F. INSURANCE WILL PAY 70% PATIENT IS RESPONSIBLE FOR 30%. CM HAD ITA EXPLAIN TO THE PATIENT'S . STATES PATIENT HAS MEDICAID UNTIL 11/13/18 PER A LETTER THEY RECEIVED. TC TO [employer] TO VERIFY NUMBERS FOR [facility]. SANTANA IN MED DATA CHECKED AND PER THE MEDICAID SYSTEM IT IS STILL IN PENDING STATUS. [facility] STATED SOME CORRECTIONS ARE REQUIRED BEFORE APPROVAL. CM HAS UPDATED THE PATIENT AND HIS . DCP- Discharge Planning Updated by [id number]: Tamy Hogan on 11/02/18 3:[address] Met with patient and spouse to discuss discharge planning. I reviewed IV antibiotics and they would like to use [facility]. They would like [facility] for home health and [facility] for DME company. I notified Efren with [facility] and clinical faxed. I notified [facility] and they will check with me on Monday. I notified Jules with [facility] and will do a walk test on Monday for home oxygen. I do not have the approval back for his wound vac yet from insurance, will recheck on Monday. CM will continue to follow and assist with discharge planning/needs. DCP- Discharge Planning Updated by [id number]: Tamy Hogan on 11/02/18 1:[address] Received a call from Deann with [facility]. Deann states that she is unable to know what the out of pocket cost is, but the patient is in network. She states Jessica will be covering for her on Monday. I spoke with Debora with [facility] and she states his plan will pay 100%. CM will present both to at 1500 today when she arrives. CM will continue to follow and assist with discharge planning/needs. DCP- Discharge Planning Updated by [id number]: Tamy Hogan on 11/02/18 8:[address] Spoke with patient's today on the phone concerning what HHS, DME company and infusion company she would like to use. She states she is at work at this time and will meet with me at 3:00 today. I faxed signed Rx to [facility] for wound vac. CM will continue to follow and assist with discharge planning/needs. DCP- Discharge Planning Updated by [email or web address]: Tamy Hogan on 11/01/18 1:[address] CM met with patient to discuss MEHNAZ forms for DME, HHS and infusion company. He states he does not have a preference and would like me to speak with his . I called his 's number and left a message concerning preferences. CM will continue to follow and assist with discharge planning/needs. DCP- Discharge Planning Updated by [email or web address]: Tamy Hogan on 10/26/18 3:[address] Patient Name: KEILY NORMAN Admission Status: ER Accout number: [id number] Admission Date: 10-23-2018 : 1960 Admission Diagnosis: Attending: MAYELA CARVAJAL Current LOS: 3 Anticipated DC Date: Planned Disposition: Home Primary Insurance: [employer] CM met with patient to complete initial dc planning assessment. CM educated patient on the CM role and verbal consent given by patient to complete assessment. Patient lives at home with his . At discharge he plans on returning and feels this is a safe discharge. CM discussed availability of home health, rehab services and medical equipment. Patient denied known discharge needs at this time. CM will continue to follow and will assist as needed with dc plans/needs. Discharge Planning Comments: Esthetician Facialist: Tamy Hogan DCPIA - Discharge Planning Initial Assessment Updated by [email or web address]: Tamy Hogan on 10/26/18 4:37 pm * Is the patient Alert and Oriented? Yes * How many steps to enter\exit or inside your home? Ramp/0 * PCP Abigail Clark * Pharmacy [facility] * Preadmission Environment Home with Family * ADLs Independent * Equipment None * List name and contact numbers for known caregivers / representatives who currently or will assist patient after discharge: Debora Norman - spouse - [phone] * Verbal permission to speak to the caregivers and representatives has been obtained from the patient. Yes * Community resources currently utilized None * Additional services required to return to the preadmission environment? No * Can the patient safely return to the preadmission environment? Yes * Has this patient been hospitalized within the prior 30 days at any hospital? No Coverage Notice Reviewer: [id number] - Tamy Hogan Notice Issued Date-Time: 11/02/2018 15:57 Notice Type: Patient Choice Letter Notice Delivered To: Family Member Relationship to Patient: Spouse Senior Materials Analyst Name: Delivery Method: HAND - Hand Delivered Latisha Days: Prior Verbal Notification: Recipient Understood Notice: Yes Recipient Signature: Yes Med Rec Note Co-signed by Attending: Coverage Notice Comment: MEHNAZ FOR MANUEL BOWIE, SHERWIN EDDY Reviewer: [id number] - Caity Swain Notice Issued Date-Time: 11/07/2018 16:38 Notice Type: Patient Choice Letter Notice Delivered To: Patient Relationship to Patient: Self Senior Materials Analyst Name: Delivery Method: HAND - Hand Delivered Latisha Days: Prior Verbal Notification: Recipient Understood Notice: Yes Recipient Signature: Yes Med Rec Note Co-signed by Attending: Coverage Notice Comment: MEHNAZ FOR SN[facility] Last DP export: 11/07/18 3:37 p Patient Name: KEILY NORMAN Page [id number] at 1647 All edits/amendments must be made on the electronic document DICTATION DATE: 11/07/181645 CORPORATE LEGAL ASSISTANT: ANGEL 11/07/181645 RPT#: [id number] DC DATE: STATUS: ADM IN [facility] [address] [place] [address] END OF REPORT
[2018-11-07 19:25] VITALS: BP 115/53
--- NOTE | 2018-11-07 20:00 | NUR ---
ASSESSMENT PER FLOWSHEET. IV PATENT LEFT ARM MIDLINE SALINE LOCKED.O2 ON AT 2.5 L HIGH FLOW. NO DISTRESS. SR UP X2 CALL LIGHT WITHIN REACH. WOUND VAC TO RT ANKLE IN PLACE. SKIN VERY DRY AND FLAKEY.
--- NOTE | 2018-11-07 21:00 | NUR ---
MEDS GIVEN PER SEP. SESG=[phone]. 8 UNITS REG INSULIN GIVEN PER S/S.
--- NOTE | 2018-11-08 | NUR ---
E[facility] CLOSED RESPIRATIONS WITH EASE AND UNLABORED.
--- NOTE | 2018-11-08 03:00 | NUR ---
E[facility] CLOSED RESPIRATIONS WITH EASE AND UNLABORED. DENIES NEEDS.
[2018-11-08 03:27] VITALS: BP 117/84
[2018-11-08 05:19] LABS: BASOPHILS 1.8 % (0-2); EOSINOPHILS 5.3 % (0-7); HEMATOCRIT 35.8 % (42.0-54.0); HEMOGLOBIN 11.4 g/dL (13.5-17.5); IMMATURE GRANULOCYTES 0.5 % (0-5); LYMPHOCYTES 26.7 % (15-50); MCH 27.9 pg (26.0-34.0); MCHC 31.8 g/dL (31.0-37.0); MCV 87.7 fL (80.0-100.0); MEAN PLATELET VOLUME 9.5 fL (7.4-10.4); MONOCYTES 10.6 % (2-11); NEUTROPHILS 55.1 % (40-80); PLATELET COUNT 328 10x3/uL (130-400); RBC 4.08 10x6/uL (4.20-6.10); RDW 18.1 % (11.5-14.5); WBC 7.4 10x3/uL (4.8-10.8)
[2018-11-08 05:44] LABS: ALBUMIN 2.6 g/dL (3.4-5.0); ALKALINE PHOSPHATASE 80 U/L (46-116); ALT (SGPT) 52 U/L (10-68); BILIRUBIN - TOTAL 0.22 mg/dL (0.2-1.3); CALC OSMOLALITY 269 mosm/kg (275-300); CALCIUM 9.4 mg/dL (8.5-10.1); CARBON DIOXIDE 33.8 mmol/L (21.0-32.0); CHLORIDE - SERUM 96 mmol/L (98-107); CREATININE - SERUM 0.8 mg/dL (0.6-1.3); GLUCOSE 125 mg/dL (74-106); POTASSIUM - SERUM 3.9 mmol/L (3.5-5.1); PROTEIN - SERUM 8.5 g/dL (6.4-8.2); SODIUM 134 mmol/L (136-145); UREA NITROGEN 15 mg/dL (7-18); eGFR NON AFRICAN AMERICAN > 90 mL/min (90-120)
--- NOTE | 2018-11-08 06:18 | NUR ---
MEDS GIVEN PER MAR WQEO=[id number] NO COVERAGE
--- NOTE | 2018-11-08 08:45 | NUR ---
PATIENT SITTING UP IN CHAIR WITH NO COMPLAINTS OR SIGNS OF DISTRESS. IV INTACT. CALL LIGHT WITHIN REACH.
[2018-11-08 08:52] VITALS: BP 109/63
--- NOTE | 2018-11-08 10:53 | NUR ---
Wound vac d/c'd as per Dr. Martinez. Teaching started with pt on dressing changes for home. (Wet to dry with saline). Demonstrated the steps of changing dressing and wrote out instructions for pt and his . Wound measurements are 7cm x 3cm x 2cm (right lateral ankle).
[2018-11-08 12:57] VITALS: BP 112/69
--- NOTE | 2018-11-08 13:00 | NUR ---
DRESSING PLACED OVER BLISTERS ON RIGHT TOP OF FOOT FROM TAPE FROM THE WOUND VAC THAT WAS ON EARLIER. ADAPTIC APPLIED, GAUZE, WRAPPED IN KERLIX. TOLERATED WITH NO PAIN.
--- NOTE | 2018-11-08 14:36 | MORECARE ---
CASE MANAGEMENT DISCHARGE SUMMARY PATIENT: KEILY NORMAN UNIT: [id number] ADM DATE: 10/23/18 AGE: 58 : 62 SEX: M ROOM/BED: D.2224 AUTHOR: SELENEDOC PHYSICIAN: REFERRING PHYSICIAN: MAYELA CARVAJAL MD DATE OF SERVICE: 11/08/18 Discharge Plan Patient Name: KEILY NORMAN Facility: [facility]:[place] : 1960 Planned Disposition: Home Anticipated Discharge Date: Discharge Date: Expected LOS: Initial Reviewer: [email or web address] Initial Review Date: 10/26/2018 Generated: 11/08/18 3:36 pm Comments DCP- Discharge Planning Updated by [id number]: Frances Carlin on 11/08/18 1:[address] PATIENT WILL BE DISCHARING HOME TODAY WITH HIS , WOUND VAC HAS BEEN DC PATIENT AND HAVE BEEN TAUGHT TO DO THIS AT HOME. HE WILL ASLO HAVE HOME IV ABX FROM [place]. THEY WILL BE DOING TEACHING AT BEDSIDE AT 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 PATIENT HAS HOME O2 AND NEBULIZER FROM [facility] [place] WHAT HAS ALREADY BEEN DELIVERED. CM TO FOLLOW AND ASSIST WITH DC PLANNING NEEDED DCP- Discharge Planning Updated by [id number]: Caity Swain on 11/07/18 3:[address] Patient Name: KEILY NORMAN Admission Status: ER Accout number: [id number] Admission Date: 10-23-2018 : 1960 Admission Diagnosis:CELLULITIS OF LEFT LOWER LIMB Attending: MAYELA CARVAJAL Current LOS: 15 Anticipated DC Date: Planned Disposition: Home Primary Insurance: [employer]IG[employer] PPO Discharge Planning Comments: NONE OF THE HOME HEALTH AGENCIES WILL TAKE THE PATIENT BECAUSE OF HIS INS. HE ONLY HAS 5 DAYS OF HH AVAILABLE. I SPOKE WITH EVELYN DAVIS AND WE ARE GOING TO SEE IF A SNF WILL ACCEPT HIM. MEHNAZ LEFT WITH PATIENT, HE IS TALKING TO HIS AND RN FRIEND TO CHOSE A SNF. WOUND VAC WAS RECIEVED AND IS PLACED AT NURSING AREA FOR PATIENT AT TIME OF DC. CM WILL FOLLOW AND ASSIST NEEDED WITH DC PLANNING/NEEDS. ALSO PATIENT DOES HAVE FRANCIS , NUMBER IS [id number]. MED DATA STATES IT WILL SHOW IN ACTIVE BUT IT IS ACTIVE THOUGH UNTIL NOVEMBER. Adjunct Professor Of English: Caity Swain Appended by Caity Swain on 11/07/2018 16:41 CDT: EVERY HH AGENCY CONTACTED, NONE WILL ACCEPT PATIENT. MEHNAZ SIGNED FOR SNF OF [facility] OR [facility]. [facility] CALLED AND FS FAXED, THEY WILL CALL BACK TOMORROW AND LET US KNOW SOMETHING. DCP- Discharge Planning Updated by [id number]: Frances Carlin on 11/06/18 1:[address] PATIENT'S WOUND VAC HAS NOT BEEN APPROVED YET BY HIS INSURANCE. DEBBIE MORALES CAN DO THE IV ABX AND HIS INSURANCE WILL COVER 100% WITH A MED BALL. HE ONLY HAS 5 HH VISITS PER YEAR ( I'M TOLD) CM WILL CONTINUE TO FOLLOW AND ASSIST WITH DC PLANNING DCP- Discharge Planning Updated by [id number]: Becky Mayer on 11/05/18 6:[address] RM AIR O2 SAT AT REST OBTAINED. O2 SAT WAS 87%. [facility] TEXTED [facility]. [facility] FAXED CLINICAL, O2 SAT READING AND MD ORDERS. [facility] TO BEDSIDE TO DELIVER OXYGEN AND NEBULIZER. CM ATTEMPTING TO FIND MD TO SIGN THE REQUIRED PAPERWORK. DISABILITY INSURANCE CLAIM EXAMINER CANNOT SIGN. TC TO DR ROCHA AND DR CARVAJAL. MD STATEMENT NEEDED REGARDING NEBULIZER. PORTABLE OXYGEN UNIT IS AT THE BEDSIDE. DCP- Discharge Planning Updated by [id number]: Becky Mayer on 11/05/18 6:[address] CM RECEIVED A MESSAGE FROM [facility], [employer], THAT [facility] HAD CALLED TO SAY THEY COULD NOT ASSUME CARE FOR THE PATIENT. THEY ARE NOT IN-NETWORK FOR HIS CIGNA PPO PLAN. CM REC TELEPHONE CALL FROM [facility].THEY WERE READY TO PROVIDE IVAB THERAPY. MAGY ADVISED BY [facility] THAT [facility] HAD ACCEPTED THE REFERRAL COR COULD NOT CONFIRM UNTIL MONDAY. TC TO [facility]. [facility] IS READY TO PROVIDE SERVICE. AWAIT DISCHARGE ORDERS W/ IVAB ORDER. TC TO [facility]. THEY ARE NOT CONTRACTED W/ CIGNA. TC TO [facility]. THEY ARE NOT CONTRACTED W/ CIGNA. TC TO [facility]. THEY HAVE A CIGNA CONTRACT NOT CERTAIN THEY ARE IN-NETWORK FOR HIS PLAN. DID NOT FEEL IT WOULD BE SAFE TO PROVIDE CARE FOR A PATIENT AT THAT DISTANCE WITH HIS SPECIFIC NEEDS. DR PATEL [facility] ISSUE. ADVISED INFUSION COMPANY CAN PROVIDE NURSING FOR INFUSION BUT CANNOT DO M/W/F WOUND VAC DRESSING CHANGES. TC TO [facility]. SPOKE W/ [facility]. FAXED REFERRAL. ITA MADE NUMEROUS CALL AND HAD HER BRAZER ASSEMBLER ASSISTING. [facility]TA CALLED CM TO ADVISE OF PROGRESS AND ISSUE. [facility] IS IN NETWORK, HOWEVER PATIENT HAS ONLY 5 TOTAL HH VISITS. HIS WOUND VAC HAS DRESSING CHANGES M/W/F. INSURANCE WILL PAY 70% PATIENT IS RESPONSIBLE FOR 30%. CM HAD [facility]TA EXPLAIN TO THE PATIENT'S . STATES PATIENT HAS MEDICAID UNTIL 11/13/18 PER A LETTER THEY RECEIVED. TC TO [employer] TO VERIFY NUMBERS FOR SURJIT. MAX IN [employer] DATA CHECKED AND PER THE MEDICAID SYSTEM IT IS STILL IN PENDING STATUS. [facility] STATED SOME CORRECTIONS ARE REQUIRED BEFORE APPROVAL. CM HAS UPDATED THE PATIENT AND HIS . DCP- Discharge Planning Updated by [id number]: Tamy Hogan on 11/02/18 3:[address] Met with patient and spouse to discuss discharge planning. I reviewed IV antibiotics and they would like to use [email or web address]. They would like [facility] for home health and [facility] for [facility]. I notified Efren with [facility] and [facility] faxed. I notified [facility] and they will check with me on Monday. I notified Jules with [facility] and will do a walk test on Monday for home oxygen. I do not have the approval back for his wound vac yet from insurance, will recheck on Monday. CM will continue to follow and assist with discharge planning/needs. DCP- Discharge Planning Updated by [id number]: Tamy Hogan on 11/02/18 1:[address] Received a call from Deann with [facility]. Deann states that she is unable to know what the out of pocket cost is, but the patient is in network. She states Jessica will be covering for her on Monday. I spoke with Debora with [email or web address] and she states his plan will pay 100%. CM will present both to at 1500 today when she arrives. CM will continue to follow and assist with discharge planning/needs. DCP- Discharge Planning Updated by [id number]: Tamy Hogan on 11/02/18 8:[address] Spoke with patient's today on the phone concerning what HHS, DME company and infusion company she would like to use. She states she is at work at this time and will meet with me at 3:00 today. I faxed signed Rx to [facility] for wound vac. CM will continue to follow and assist with discharge planning/needs. DCP- Discharge Planning Updated by [id number]: Tamy Hogan on 11/01/18 1:[address] CM met with patient to discuss MEHNAZ forms for DME, HHS and infusion company. He states he does not have a preference and would like me to speak with his . I called his 's number and left a message concerning preferences. CM will continue to follow and assist with discharge planning/needs. DCP- Discharge Planning Updated by [email or web address]: Tamy Hogan on 10/26/18 3:[address] Patient Name: KEILY NORMAN Admission Status: ER Accout number: [id number] Admission Date: 10-23-2018 : 1960 Admission Diagnosis: Attending: MAYELA CARVAJAL Current LOS: 3 Anticipated DC Date: Planned Disposition: Home Primary Insurance: [employer] CM met with patient to complete initial dc planning assessment. CM educated patient on the CM role and verbal consent given by patient to complete assessment. Patient lives at home with his . At discharge he plans on returning and feels this is a safe discharge. CM discussed availability of home health, rehab services and medical equipment. Patient denied known discharge needs at this time. CM will continue to follow and will assist as needed with dc plans/needs. Discharge Planning Comments: Adjunct Professor Of English: Tamy Edison DCPIA - Discharge Planning Initial Assessment Updated by [id number]: Tamy Mendiolaalia on 10/26/18 4:37 pm * Is the patient Alert and Oriented? Yes * How many steps to enter\exit or inside your home? Ramp/0 * PCP Abigail Clark * Pharmacy [facility] * Preadmission Environment Home with Family * ADLs Independent * Equipment None * List name and contact numbers for known caregivers / representatives who currently or will assist patient after discharge: Debora Norman - spouse - [phone] * Verbal permission to speak to the caregivers and representatives has been obtained from the patient. Yes * Community resources currently utilized None * Additional services required to return to the preadmission environment? No * Can the patient safely return to the preadmission environment? Yes * Has this patient been hospitalized within the prior 30 days at any hospital? No Coverage Notice Reviewer: [email or web address] - Tamy Hogan Notice Issued Date-Time: 11/02/2018 15:57 Notice Type: Patient Choice Letter Notice Delivered To: Family Member Relationship to Patient: Spouse Engagement Liaison Name: Delivery Method: HAND - Hand Delivered Latisha Days: Prior Verbal Notification: Recipient Understood Notice: Yes Recipient Signature: Yes Med Rec Note Co-signed by Attending: Coverage Notice Comment: MEHNAZ FOR DEBBIE MORALES, MANUEL, LANI EDDY Reviewer: [email or web address] - Caity Swain Notice Issued Date-Time: 11/07/2018 16:38 Notice Type: Patient Choice Letter Notice Delivered To: Patient Relationship to Patient: Self Engagement Liaison Name: Delivery Method: HAND - Hand Delivered Latisha Days: Prior Verbal Notification: Recipient Understood Notice: Yes Recipient Signature: Yes Med Rec Note Co-signed by Attending: Coverage Notice Comment: MEHNAZ FOR [facility], 2ND CHOICE [facility] Last DP export: 11/07/18 3:47 p Patient Name: KEILY NORMAN Page [id number] at 1436 All edits/amendments must be made on the electronic document DICTATION DATE: 11/08/18 1435 CREEL CLEANER: ANGEL 11/08/18 1435 RPT#: [id number] DC DATE: STATUS: ADM IN [facility] [address] [place] [address] END OF REPORT
[2018-11-08] MEDS ORDERED: ELIQUIS5 MG PO (14:46)
[2018-11-08] MEDS ORDERED: ROCEPHIN 2 GM/D5W 50 IV (14:46)
[2018-11-08] MEDS ORDERED: HCTZ25 MG PO (14:47)
[2018-11-08] MEDS ORDERED: IPRAT-ALBUT 0.5-3 ML INH (14:50)
[2018-11-08] MEDS ORDERED: ALBUTEROL SULF8.5 GM INH (14:51)
[2018-11-08] MEDS ORDERED: HYDROCODON-ACE1 EAC2 PO (15:15)
[2018-11-08 16:14] VITALS: BP 99/71
--- NOTE | 2018-11-08 16:57 | NUR ---
PATIENT RECIEVED DISCHARGE INSTRUCTIONS. VERBALIZED UNDERSTANDING. NO QUESTIONS AT THIS TIME. PRESCRIPTIONS GIVEN WITH INSTRUCTIONS. EXPLAINED TO PATIENT HOW TO DO DRESSING CHANGES. PATIENT STATED SHE HAD DONE WET TO DRY DRESSINGS BEFORE SO SHE IS FAMILIAR WITH DOING THEM. PATIENT STATED HE WAS ALSO SHOWN BY THE WOUND CARE NURSE DALJIT HOW TO DO DRESSING CHANGES. MIDLINE STAYING IN FOR HOME ANTIBIOTICS. PATIENT TAUGHT BY DEBBIE MORALES HOW TO DO ANTIBIOTICS ALONG WITH PATIENTS . NO QUESTIONS AT THIS TIME. AWAITING FOR DC.
== END 2018-11-08 17:00 | disposition home or self-care (01) | DRG 500 ==
LOC: D.ER 16:36 → D.MS 20:26 → D.EDHOLD 20:26 → D.MS 10-24 17:28
PROVIDERS: Family Medicine; Orthopaedic Surgery; ADMIT Internal Medicine Nephrology; ATTEND Internal Medicine Nephrology
PROC: 0J9Q0ZZ Drainage of Right Foot Subcutaneous Tissue and Fascia, Open Approach (ICD-10-PCS; principal; 2018-10-28 10:25)
DX: M00.9 Pyogenic arthritis, unspecified (principal); J96.91 Respiratory failure, unspecified with hypoxia; L03.116 Cellulitis of left lower limb; E87.1 Hypo-osmolality and hyponatremia; F17.213 Nicotine dependence, cigarettes, with withdrawal; M87.871 Other osteonecrosis, right ankle; J90 Pleural effusion, not elsewhere classified; J98.11 Atelectasis; M87.9 Osteonecrosis, unspecified; I82.622 Acute embolism and thrombosis of deep veins of left upper extremity; M00.071 Staphylococcal arthritis, right ankle and foot; D64.9 Anemia, unspecified; I10 Essential (primary) hypertension; K21.9 Gastro-esophageal reflux disease without esophagitis; G62.9 Polyneuropathy, unspecified; B95.61 Methicillin susceptible Staphylococcus aureus infection as the cause of diseases classified elsewhere

== ENCOUNTER → 2018-11-14 19:43 | Outpatient (CLI) | payer SELFPAY ==
[~2018-11-14 19:43] MED LIST changes: +ALBUTEROL SULF8.5 GM INH; +ELIQUIS5 MG PO; +HCTZ25 MG PO; +HYDROCODON-ACE1 EAC2 PO; +IPRAT-ALBUT 0.5-3 ML INH; +ROCEPHIN 2 GM/D5W 50 IV
[2018-11-14 20:19] LABS: BASOPHILS 1.5 % (0-2); EOSINOPHILS 10.4 % (0-7); HEMATOCRIT 35.5 % (42.0-54.0); HEMOGLOBIN 11.4 g/dL (13.5-17.5); IMMATURE GRANULOCYTES 0.2 % (0-5); LYMPHOCYTES 20.8 % (15-50); MCH 28.6 pg (26.0-34.0); MCHC 32.1 g/dL (31.0-37.0); MCV 89.2 fL (80.0-100.0); MEAN PLATELET VOLUME 9.8 fL (7.4-10.4); MONOCYTES 10.8 % (2-11); NEUTROPHILS 56.3 % (40-80); PLATELET COUNT 329 10x3/uL (130-400); RBC 3.98 10x6/uL (4.20-6.10); RDW 17.9 % (11.5-14.5); WBC 9.9 10x3/uL (4.8-10.8)
[2018-11-14 20:55] LABS: C-REACTIVE PROTEIN 2.8 mg/dL (0.0-0.9); CREATININE - SERUM 0.8 mg/dL (0.6-1.3)
[2018-11-14 21:34] LABS: ERYTHROCYTE SEDIMENTATION RATE 75 mm/hr (0-20)
== END | disposition home or self-care (01) ==
LOC: D.LABREF 19:43
PROVIDERS: ATTEND Student in an Organized Health Care Education/Training Program
DX: Z51.81 Encounter for therapeutic drug level monitoring (principal); Z79.2 Long term (current) use of antibiotics

== ENCOUNTER → 2019-01-10 13:53 | Outpatient (CLI) | payer OTHER, MEDICAID | END | disposition home or self-care (01) | LOC: D.RT 01-07 08:00 | PROVIDERS: ATTEND Internal Medicine Pulmonary Disease | DX: J44.9 Chronic obstructive pulmonary disease, unspecified (principal) ==

== ENCOUNTER → 2020-12-08 11:52 | Day surgery (SDC) | payer OTHER, MEDICAID ==
[~2020-12-08 11:52] MED LIST changes: +CIPRO500 MG PO; +DICLOFENAC SODI50 MG PO; +LISINOPRIL-HCT1 EAC8 PO; +VITAMIN D21250 MC1 PO; +ZYLOPRIM300 MG PO
[2020-12-08 12:52] LABS: EOSINOPHILS 8.3 % (0-7); HEMATOCRIT 30.2 % (42.0-54.0); HEMOGLOBIN 9.7 g/dL (13.5-17.5); LYMPHOCYTES 21.7 % (15-50); MCHC 32.1 g/dL (31.0-37.0); MCV 74.6 fL (80.0-100.0); MEAN PLATELET VOLUME 6.9 fL (7.4-10.4); MONOCYTES 7.5 % (2-11); NEUTROPHILS 61.5 % (40-80); RBC 4.06 10x6/uL (4.20-6.10); WBC 11.8 10x3/uL (4.8-10.8)
[2020-12-08 12:57] LABS: PLATELET COUNT 413 10x3/uL (130-400)
[2020-12-08 13:24] LABS: CALC OSMOLALITY 259 mosm/kg (275-300); CALCIUM 9.1 mg/dL (8.5-10.1); CARBON DIOXIDE 26.5 mmol/L (21.0-32.0); CHLORIDE - SERUM 95 mmol/L (98-107); CREATININE - SERUM 0.8 mg/dL (0.6-1.3); GLUCOSE 101 mg/dL (74-106); SODIUM 129 mmol/L (136-145); UREA NITROGEN 15 mg/dL (7-18); eGFR NON AFRICAN AMERICAN > 90 mL/min (90-120)
== END | disposition home or self-care (01) ==
LOC: D.OPS 11:52
PROVIDERS: Anesthesiology; ATTEND Surgery
DX: K43.2 Incisional hernia without obstruction or gangrene (principal); Z53.20 Procedure and treatment not carried out because of patient's decision for unspecified reasons